=== PATIENT | female | born 2000 | race Caucasian/White ===

== ENCOUNTER 2018-07-30 12:14 | Emergency (ER) | payer SELFPAY ==
[2018-07-30 12:16] VITALS: BP 129/85; PULSE 94; RESP 18; TEMP 36.6; O2SAT 98; BMI 31.5
--- NOTE | 2018-07-30 13:21 | EKG12_ITS ---
Test Reason : PALPITATIONS Blood Pressure : / mmHG Vent. Rate : 087 BPM Atrial Rate : 087 BPM P-R Int : 156 ms QRS Dur : 086 ms QT Int : 372 ms P-R-T Axes : 057 071 051 degrees QTc Int : 447 ms Normal sinus rhythm Normal ECG Confirmed by MORGAN LEACH, ISAAC ([id number]), senior editor ALAYNA FRIEDMAN ([id number] on 08/03/2018 8:51:15 AM Referred By: Confirmed By:ISAAC MORA MD
--- NOTE | 2018-07-30 13:22 | RAD_ITS ---
STUDY: X-RAY CHEST REASON FOR EXAM: Female, 18 years old. Heart palpitations. TECHNIQUE: Frontal and lateral views of the chest. COMPARISON: None. FINDINGS: The lungs are clear and expanded. There is no demonstrated pleural abnormality. Normal size heart. Normal mediastinum and doni. Normal visualized pulmonary arteries. Normal visualized aortic arch and descending thoracic aorta. Normal visualized thoracic spine. Normal visualized ribs, clavicles, and shoulders. There is no demonstrated abnormality of the visualized soft tissue structures of the upper abdomen. RAD/Chest PA and Lateral IMPRESSION: No evidence of acute cardiopulmonary process. Electronically Signed: Lan Rios DO at 14:56 EDT , Service support ,
--- NOTE | 2018-07-30 13:27 | NURSING ---
NO OLD EKGS
[2018-07-30 13:34] LABS: Absolute Lymphocyte Count 2.03 X10^3/ul (0.83-4.51); Basophil# 0.03 X10^3/uL; Basophil% 0.4 % (0-1); Eosinophil# 0.08 X10^3/uL; Hematocrit 40.4 % (37-47); Hemoglobin 13.5 g/dl (12.0-15.0); Lymphocyte # 2.03 X10^3/ul (4.0); Lymphocyte % 26.3 % (19-41); Mean Corp Hgb Conc 33.4 g/gl (32-36); Mean Corpuscular Hgb 31.1 pg (27.0-32.0); Mean Corpuscular Volume 93.1 fL (81-99); Mean Platelet Vol. 10.3 fl (6.2-12.0); Monocyte# 0.61 X10^3/uL; Monocyte% 7.9 % (0-10); Neutrophil # 4.95 X10^3/uL (2.7-7.7); Neutrophil % 64.3 % (47-70); POSITIVE COUNT NO; POSITIVE DIFFERENTIAL NO; POSITIVE MORPHOLOGY NO; Platelet Count 331 K/mm3 (150-450); RBC Distribution Width CV 12.6 % (11.6-14.6); Red Blood Count 4.34 M/mm3 (4.2-5.4); White Blood Count 7.7 K/mm3 (4.4-11.0)
[2018-07-30 13:39] LABS: D-Dimer Quantitative (DVT/PE) < 0.27 FEU/ug/m (0.27-0.49)
[2018-07-30 13:50] LABS: AST(SGOT) 11 U/L (15-37); Alanine Aminotransfer ALT/SGPT 17 U/L (13-56); Albumin, Serum 3.8 g/dL (3.2-5.0); Alkaline Phosphatase 70 U/L (45-117); Anion Gap 10 (5-15); BUN 13 mg/dL (7-18); BUN/Creat Ratio 17.1 RATIO (10-20); Bilirubin, Direct 0.07 mg/dL (0.00-0.30); Calcium,Total 8.5 mg/dL (8.5-10.1); Chloride 104 mmol/L (98-107); Creatinine, Serum 0.76 mg/dL (0.55-1.02); EST Glomerular Filtration Rate 102 mL/min (>60); Est Glom Filt Rate - Afr Amer 124 mL/min (>60); Estimated Creatinine Clearance 93.39 ml/min; Glucose 91 mg/dL (74-106); Lipase 96 U/L (73-393); Potassium 3.9 mmol/L (3.5-5.1); Protein, Total 7.8 g/dL (6.4-8.2); Sodium Level 138 mmol/L (136-145)
[2018-07-30 14:59] VITALS: BP 118/80; PULSE 85; RESP 14; O2SAT 98
--- NOTE | 2018-07-30 15:09 | ED.VISSUMM ---
- ER Visit Summary Date of Service: 07/30/18 Chief Complaint: Multiple complaints History of Present Illness: The patient is a 18 F who presents with multiple complaints. Over the last 2 weeks she has had intermittent episodes of palpitations and a sensation of her heart racing. She does note a prior history of stress attacks. She also complains of a sore throat. She also complains of right lower chest and right upper abdominal pain and right shoulder pain. She also complains of back pain and neck pain. She has a cough. She has had some diarrhea. She complains of intermittent headaches. At times she feels dizzy or flushed. No history of recent surgery hospitalization or travel. No history of DVT or pulmonary embolism. No known coagulopathies. No medical history. Physical Examination: Afebrile vitals are normal Moist mucous membranes Heart regular rate and rhythm Lungs are clear Abdomen soft nontender to palpation and nondistended Alert Symmetric palpable radial pulses and dorsalis pedis pulses Extremities are nontender without edema Test Results: EKG shows sinus rhythm at a rate of 87. Chest x-ray shows no acute process. CBC CMP lipase all normal. Troponin is negative. D-dimer is negative. Emergency Department Course and Treatment: Patient's workup is unremarkable. I advised that she follow-up with her primary care physician. She understands return for new or worsening symptoms. Patient discharged home in good condition. Treatment Plan: [] Disposition: Discharge Impression: Palpitations Chest pain Abdominal pain This note was generated with [employer] dictation software. It may contain incorrect words, spelling, and punctuation that were not noted in review of the chart prior to signing ED Disposition - Plan for ED Patient: Chief Complaint: Palpitations Referrals: Care Physician,No Primary [Primary Care Provider] -
--- NOTE | 2018-07-30 15:15 | ED.DEP ---
ED Disposition - Plan for ED Patient: Chief Complaint: Palpitations Instructions: ED Palpitations Referrals: Care Physician,No Primary [Primary Care Provider] - Shar Millard MD [STAFF PHYSICIAN] -
[2018-07-30 15:20] VITALS: BP 105/70; PULSE 80; RESP 14; O2SAT 98
== END 2018-07-30 15:24 | disposition home or self-care (01) ==
PROVIDERS: Emergency Provider Emergency Medicine
DX: R00.2 Palpitations (principal); R07.9 Chest pain, unspecified; R10.11 Right upper quadrant pain; M25.511 Pain in right shoulder; M54.2 Cervicalgia; R51 Headache; J02.9 Acute pharyngitis, unspecified; R05 Cough; R06.00 Dyspnea, unspecified; R42 Dizziness and giddiness; R19.7 Diarrhea, unspecified
CPT/HCPCS: 71046; 80048; 80076; 83690; 84484; 85025; 85379; 93005; 99284; A4216

== ENCOUNTER 2019-01-16 20:28 | Emergency (ER) | payer SELFPAY ==
[2019-01-16 20:29] VITALS: BP 128/62; PULSE 113; RESP 18; TEMP 37.6; O2SAT 98; BMI 33.7
[2019-01-16 21:07] LABS: Absolute Lymphocyte Count 0.62 X10^3/ul (0.83-4.51); Absolute Neutrophil Count 9.8 X10^3/uL (2.0-7.7); Basophil# 0.01 X10^3/uL; Basophil% 0.1 % (0-1); Eosinophil# 0.01 X10^3/uL; Eosinophils% 0.1 % (0-5); Hematocrit 42.5 % (37-47); Hemoglobin 13.9 g/dl (12.0-15.0); Lymphocyte # 0.62 X10^3/ul (4.0); Lymphocyte % 5.6 % (19-41); Mean Corp Hgb Conc 32.7 g/gl (32-36); Mean Corpuscular Hgb 30.6 pg (27.0-32.0); Mean Corpuscular Volume 93.6 fL (81-99); Mean Platelet Vol. 10.4 fl (6.2-12.0); Monocyte# 0.61 X10^3/uL; Monocyte% 5.5 % (0-10); Neutrophil # 9.75 X10^3/uL (2.7-7.7); Neutrophil % 88.5 % (47-70); Platelet Count 359 K/mm3 (150-450); RBC Distribution Width SD 44.6 fl (35.1-43.9); Red Blood Count 4.54 M/mm3 (4.2-5.4)
[2019-01-16 21:08] LABS: POSITIVE COUNT NO; POSITIVE DIFFERENTIAL NO; POSITIVE MORPHOLOGY NO
[2019-01-16 21:14] LABS: Anion Gap 9 (5-15); BUN 11 mg/dL (7-18); BUN/Creat Ratio 15.6 RATIO (10-20); Calcium,Total 8.1 mg/dL (8.5-10.1); Chloride 105 mmol/L (98-107); EST Glomerular Filtration Rate 112 mL/min (>60); Est Glom Filt Rate - Afr Amer 135 mL/min (>60); Estimated Creatinine Clearance 101.39 ml/min; Glucose 105 mg/dL (74-106); Potassium 3.7 mmol/L (3.5-5.1); Sodium Level 137 mmol/L (136-145)
[2019-01-16 21:32] LABS: Red Blood Cells-Urine 0 SEEN /hpf (0-5)
[2019-01-16 21:34] LABS: Color, Urine Yellow (Yellow); Glucose, Dipstick Normal (Normal); Ketone-Dipstick Negative (Negative); Leukocyte Esterase-Dipstick 100 /ul (Negative); Nitrite-Dipstick Negative (Negative); Occult Blood-Urine 150 /ul (Negative); Protein-Dipstick 15 mg/dl (Negative); Urine Bilirubin Dipstick Negative (Negative); Urine Clarity Clear (Clear); Urine Urobilinogen Normal (Normal)
[2019-01-16 21:34] LABS: Pregnancy, Serum, hCG Quali. NEGATIVE Negative (0-9 Nonpreg)
--- NOTE | 2019-01-16 21:41 | ED.DCSUM_ITS ---
- ER Visit Summary Date of Service: 01/16/19 Chief Complaint: Abdominal pain History of Present Illness: The patient is a 18 F presenting with abdominal pain. Patient states this started today. She woke up with diffuse abdominal pain. She complains of nausea, vomiting, diarrhea. She denies blood in her stool or emesis. She does have sick contacts. She denies fever. Denies urinary complaints. She is unsure if she could be . Denies other complaints. Physical Examination: Vitals are stable. Patient is afebrile. Alert no acute distress. HEENT exam is unremarkable. Neck is supple. Lungs are clear and equal bilaterally. Heart is regular and tachycardic Abdomen is soft epigastric tenderness with no rebound or guarding Extremities are unremarkable. Skin is warm and dry. No focal neurologic deficit. Remainder of exam is unremarkable. Emergency Department Course and Treatment: CBC, chemistries unremarkable. Liver lipase are normal. Urinalysis shows 0-5 white blood cells, 0 red cells. HCG negative. Patient was given IV fluids, Zofran. CT abdomen pelvis was obtained and shows a small amount of free fluid in the cul-de-sac. No abnormal adnexal masses. No acute appendicitis or diverticulitis. On reevaluation patient is resting comfortably. She is feeling improved. She is able to tolerate p.o. in the emergency department. She is given prescription for Zofran. Advised to follow-up with her primary care physician. Advised return to the ED for worsening complaints. Disposition: Discharge home Impression: Abdominal pain; vomiting diarrhea This note was generated with [employer] dictation software. It may contain incorrect words, spelling, and punctuation that were not noted in review of the chart prior to signing ED Disposition - Plan for ED Patient: Instructions: ED Vomiting Diarrhea Nonspecific Ad Prescriptions: Ondansetron [Zofran Odt] 4 mg PO Q8H PRN PRN #10 tablet PRN Reason: Nausea Referrals: Sharad Edwards MD [NON-STAFF] -
[2019-01-16 21:50] LABS: Squamous Epithelial Cells - UA 0-5 SEEN /hpf (5-10)
[2019-01-16 21:51] LABS: Bacteria RARE /hpf (None Seen); Mucous, Urine RARE /hpf (<or=2+); White Blood Cells 0-5 SEEN /hpf (0-5)
[2019-01-16] MEDS: Ondansetron 4 MG/2 ML Vial IV (21:56)
[2019-01-16] MEDS: 0.9% Normal Saline 1,000 ML 999 ML IV (21:56)
[2019-01-16 21:58] LABS: AST(SGOT) 15 U/L (15-37); Alanine Aminotransfer ALT/SGPT 18 U/L (13-56); Albumin, Serum 3.7 g/dL (3.2-5.0); Alkaline Phosphatase 60 U/L (45-117); Bilirubin, Direct 0.16 mg/dL (0.00-0.30); Globulin 4.2 g/dL (2.2-4.2); Lipase 64 U/L (73-393); Protein, Total 7.9 g/dL (6.4-8.2)
[2019-01-16 23:13] VITALS: BP 112/68; PULSE 104; RESP 16; TEMP 37.1; O2SAT 97
[2019-01-17 01:30] VITALS: BP 116/68; PULSE 78; RESP 16; O2SAT 98
--- NOTE | 2019-01-17 02:17 | ED.DEP ---
ED Disposition - Plan for ED Patient: Instructions: ED Vomiting Diarrhea Nonspecific Ad Prescriptions: Ondansetron [Zofran Odt] 4 mg PO Q8H PRN PRN #10 tablet PRN Reason: Nausea Referrals: Sharad Edwards MD [NON-STAFF] -
[2019-01-17 02:29] VITALS: BP 126/82; PULSE 84; RESP 16; O2SAT 100
--- NOTE | 2019-01-17 21:32 | CT_ITS ---
STUDY: CT ABDOMEN AND PELVIS WITH CONTRAST REASON FOR EXAM: Female, 18 years old. Midabdominal pain RADIATION DOSAGE (If Supplied By Facility): CTDIvol = ( 14.56 ) mGy, DLP = ( 971.97 ) mGycm TECHNIQUE: Transaxial images were obtained from the dome of the diaphragm to the symphysis pubis without oral contrast. Isovue 370 100ML IV/Oral was administered. Sagittal and coronal images were reconstructed. Individualized dose optimization techniques were used for this CT. COMPARISON: None. FINDINGS: The lung bases are clear. The liver is normal. No dilated intrahepatic biliary radicles. The gallbladder is normal with no calcifications within it. There is no pericholecystic fluid collection or streakiness The spleen is normal. The pancreas is normal. Both adrenals are normal. The kidneys are normal with no masses, calculi or hydronephrosis The stomach is normal. There is no bowel distention, acute appendicitis or diverticulitis. No constricting lesions are seen in large bowel. The abdominal wall is intact with no hernias. There is no ascites or any free intraperitoneal air. No indication of epiploic appendagitis The vascular structures in the retroperitoneum are normal. There is no retrocrural, retroperitoneal or mesenteric adenopathy. The bones and joints are normal. The urinary bladder is normal.--The uterus is normal. A small amount of free fluid is in the cul-de-sac2. There is no inguinal or pelvic adenopathy. There is no inguinal hernia. . CT/Abdomen/Pelvis WITH Contrast IMPRESSION: A small amount of free fluid in the cul-de-sac. No abnormal adnexal masses. No acute appendicitis or diverticulitis. Electronically Signed: Ap Sims MD at 1:49 EDT Tel , Service support ,
== END 2019-01-17 02:35 | disposition home or self-care (01) ==
LOC: ED 21:29
PROVIDERS: Emergency Provider Emergency Medicine
DX: R10.9 Unspecified abdominal pain (principal); R11.2 Nausea with vomiting, unspecified; R19.7 Diarrhea, unspecified; K21.9 Gastro-esophageal reflux disease without esophagitis
CPT/HCPCS: 74177; 80048; 80076; 81001; 83690; 84703; 85025; 96361; 96374; 99283; Q9967; A4216; J2405

== ENCOUNTER 2019-12-18 16:24 | Emergency (ER) | payer OTHER, SELFPAY ==
[2019-12-18 16:25] VITALS: BP 138/87; PULSE 86; RESP 18; TEMP 36.6; O2SAT 99; BMI 38.7
--- NOTE | 2019-12-18 16:43 | ED.DCSUM_ITS ---
- ER Visit Summary Date of Service: 12/18/19 Chief Complaint: Bilateral hand pain and numbness History of Present Illness: The patient is a 19 F with bilateral hand pain and numbness going on for several weeks. Certain positions make her symptoms worse. Nothing seems to make them better. She works in a restaurant. No trauma. Physical Examination: Inspection normal. Range of motion intact. Good strength. Good sensation on my exam. She does have paresthesias with Phalen and Tinel's testing. Skin appears normal. Test Results: None indicated Emergency Department Course and Treatment: Patient likely has carpal tunnel syndrome bilaterally. Rest, ice, elevate. Anti-inflammatories. Wrist splints. Follow-up with orthopedics. Treatment Plan: As above Disposition: Discharge Impression: Bilateral carpal tunnel syndrome This note was generated with [employer] dictation software. It may contain incorrect words, spelling, and punctuation that were not noted in review of the chart prior to signing ED Disposition - Plan for ED Patient: Referrals: Care Physician,No Primary [Primary Care Provider] -
--- NOTE | 2019-12-18 16:45 | ED.DEP ---
ED Disposition - Plan for ED Patient: Instructions: Carpal Tunnel Prescriptions: Ibuprofen [Motrin] 800 mg PO TID PRN PRN #20 tab PRN Reason: Pain Or Fever Prescription Printed Referrals: Lila Alcantara DO [STAFF PHYSICIAN] -
[2019-12-18 16:59] VITALS: BP 121/63; PULSE 83; RESP 16; O2SAT 99
[2019-12-18 17:02] VITALS: BP 122/78; PULSE 80; RESP 16; O2SAT 99
== END 2019-12-18 17:18 | disposition home or self-care (01) ==
LOC: ED 16:50
PROVIDERS: Emergency Provider Emergency Medicine
DX: G56.03 Carpal tunnel syndrome, bilateral upper limbs (principal)
CPT/HCPCS: 99282

== ENCOUNTER → 2019-12-28 11:03 | Outpatient (CLI) | payer OTHER, SELFPAY ==
[2019-12-28 10:55] VITALS: BMI 38.7
--- NOTE | 2019-12-28 11:05 | RAD_ITS ---
STUDY: X-RAY - LEFT WRIST REASON FOR EXAM: Bilateral wrist pain. TECHNIQUE: 3 view(s) of the wrist were obtained. COMPARISON: None. FINDINGS: Normal visualized distal radius and ulna. Normal radiocarpal articulation. Normal distal radioulnar articulation. Normal carpal bones. Normal carpal articulations. Normal carpometacarpal articulation of the thumb. Normal second through fifth carpometacarpal articulations. Normal visualized metacarpal bones. The soft tissue structures are unremarkable. RAD/Wrist min 3 Views IMPRESSION: Normal x-ray examination of the left wrist. Electronically Signed: José Luis Lares MD at 13:41 EST Tel , Service support ,
--- NOTE | 2019-12-28 11:05 | RAD_ITS ---
STUDY: X-RAY - RIGHT WRIST REASON FOR EXAM: Bilateral wrist pain. TECHNIQUE: 3 view(s) of the wrist were obtained. COMPARISON: None. FINDINGS: Normal visualized distal radius and ulna. Normal radiocarpal articulation. Normal distal radioulnar articulation. Normal carpal bones. Normal carpal articulations. Normal carpometacarpal articulation of the thumb. Normal second through fifth carpometacarpal articulations. Normal visualized metacarpal bones. The soft tissue structures are unremarkable. RAD/Wrist min 3 Views IMPRESSION: Normal x-ray examination of the right wrist. Electronically Signed: José Luis Lares MD at 12:57 EST Tel , Service support ,
[2019-12-28 11:34] LABS: Lyme Ab Screen Interpretation REF LAB
[2019-12-28 14:39] LABS: Erythrocyte Sedimentation Rate 18 mm/hr (0-20); Rheumatoid Factor < 10.0 IU/mL (<15)
[2019-12-28 14:40] LABS: Absolute Lymphocyte Count 3.12 X10^3/uL (0.83-4.51); Absolute Neutrophil Count 5.6 X10^3/uL (2.0-7.7); Basophil# 0.05 X10^3/uL; Basophil% 0.5 % (0-1); Eosinophil# 0.14 X10^3/uL; Eosinophils% 1.4 % (0-5); Hematocrit 39.3 % (37-47); Hemoglobin 12.9 g/dL (12.0-15.0); Lymphocyte # 3.12 X10^3/ul (4.0); Lymphocyte % 31.8 % (19-41); Mean Corp Hgb Conc 32.8 g/dL (32-36); Mean Corpuscular Hgb 30.2 pg (27.0-32.0); Mean Platelet Vol. 10.7 fl (6.2-12.0); Monocyte# 0.87 X10^3/uL; Monocyte% 8.9 % (0-10); NRBC Flagged by Analyzer 0 % (0-5); Neutrophil % 57.1 % (47-70); Platelet Count 328 K/mm3 (150-450); RBC Distribution Width CV 12.5 % (11.6-14.6); RBC Distribution Width SD 42.2 fl (35.1-43.9); Red Blood Count 4.27 M/mm3 (4.2-5.4); White Blood Count 9.8 K/mm3 (4.4-11.0)
[2019-12-29 15:20] LABS: ANTINUCLEAR ANTIBODIES DIRECT Negative (Negative)
[2020-01-02 16:57] LABS: CCP IgG Antibodies 120 units (0-19); HLA B27 Negative (.); Lyme Scn Total Ab w/Rflx <0.91 ISR (0.00-0.90)
== END ==
PROVIDERS: Referring Provider Orthopaedic Surgery; Visit Provider Orthopaedic Surgery
DX: M25.50 Pain in unspecified joint (principal); M25.531 Pain in right wrist; M25.532 Pain in left wrist
CPT/HCPCS: 36415; 73110; 81374; 85025; 85652; 86038; 86140; 86200; 86431; 86618

== ENCOUNTER → 2020-06-11 08:48 | Outpatient (CLI) | payer OTHER, SELFPAY ==
[2020-02-06 13:15] VITALS: BMI 38.7
[2020-06-11 10:10] LABS: Absolute Lymphocyte Count 3.85 X10^3/uL (0.83-4.51); Absolute Neutrophil Count 5.9 X10^3/uL (2.0-7.7); Basophil# 0.05 X10^3/uL; Basophil% 0.4 % (0-1); Eosinophil# 0.19 X10^3/uL; Eosinophils% 1.7 % (0-5); Hematocrit 38.7 % (37-47); Hemoglobin 12.7 g/dL (12.0-15.0); Lymphocyte # 3.85 X10^3/ul (4.0); Lymphocyte % 34.5 % (19-41); Mean Corp Hgb Conc 32.8 g/dL (32-36); Mean Corpuscular Hgb 30.9 pg (27.0-32.0); Mean Corpuscular Volume 94.2 fL (81-99); Mean Platelet Vol. 10.7 fl (6.2-12.0); Monocyte# 1.15 X10^3/uL; Monocyte% 10.3 % (0-10); NRBC Flagged by Analyzer 0 % (0-5); Neutrophil % 52.8 % (47-70); Platelet Count 398 K/mm3 (150-450); RBC Distribution Width CV 13.3 % (11.6-14.6); RBC Distribution Width SD 45.3 fl (35.1-43.9); Red Blood Count 4.11 M/mm3 (4.2-5.4); White Blood Count 11.2 K/mm3 (4.4-11.0)
[2020-06-11 10:11] LABS: ALB/GLOB Ratio 0.9 RATIO (0.9-2.4); AST(SGOT) 14 U/L (15-37); Alanine Aminotransfer ALT/SGPT 25 U/L (13-56); Albumin, Serum 3.5 g/dL (3.2-5.0); Alkaline Phosphatase 71 U/L (45-117); Anion Gap 6 (5-15); BUN 11 mg/dL (7-18); BUN/Creat Ratio 17.1 RATIO (10-20); Calcium,Total 8.6 mg/dL (8.5-10.1); Chloride 103 mmol/L (98-107); Creatinine, Serum 0.64 mg/dL (0.55-1.02); EST Glomerular Filtration Rate 123 mL/min (>60); Erythrocyte Sedimentation Rate 20 mm/hr (0-20); Est Glom Filt Rate - Afr Amer 148 mL/min (>60); Globulin 3.9 g/dL (2.2-4.2); Glucose 91 mg/dL (74-106); Potassium 3.7 mmol/L (3.5-5.1); Protein, Total 7.4 g/dL (6.4-8.2); Sodium Level 135 mmol/L (136-145)
== END ==
DX: M05.79 Rheumatoid arthritis with rheumatoid factor of multiple sites without organ or systems involvement (principal)
CPT/HCPCS: 36415; 80053; 85025; 85652; 86140

== ENCOUNTER → 2020-08-27 14:25 | Outpatient (CLI) | payer OTHER, SELFPAY ==
[2020-02-06 13:15] VITALS: BMI 38.7
[2020-08-27 17:56] LABS: Absolute Lymphocyte Count 2.89 X10^3/uL (0.83-4.51); Absolute Neutrophil Count 6.3 X10^3/uL (2.0-7.7); Basophil# 0.04 X10^3/uL; Basophil% 0.4 % (0-1); Erythrocyte Sedimentation Rate 25 mm/hr (0-20); Hematocrit 40.3 % (37-47); Hemoglobin 13.2 g/dL (12.0-15.0); Lymphocyte # 2.89 X10^3/ul (4.0); Lymphocyte % 28.3 % (19-41); Mean Corp Hgb Conc 32.8 g/dL (32-36); Mean Corpuscular Hgb 31.2 pg (27.0-32.0); Mean Corpuscular Volume 95.3 fL (81-99); Mean Platelet Vol. 10.7 fl (6.2-12.0); Monocyte# 0.78 X10^3/uL; Monocyte% 7.6 % (0-10); NRBC Flagged by Analyzer 0 % (0-5); Neutrophil # 6.25 X10^3/uL (2.7-7.7); Neutrophil % 61.3 % (47-70); Platelet Count 382 K/mm3 (150-450); RBC Distribution Width CV 12.6 % (11.6-14.6); RBC Distribution Width SD 43.3 fl (35.1-43.9); Red Blood Count 4.23 M/mm3 (4.2-5.4); White Blood Count 10.2 K/mm3 (4.4-11.0)
[2020-08-27 18:10] LABS: ALB/GLOB Ratio 0.8 RATIO (0.9-2.4); AST(SGOT) 13 U/L (15-37); Alanine Aminotransfer ALT/SGPT 25 U/L (13-56); Albumin, Serum 3.4 g/dL (3.2-5.0); Alkaline Phosphatase 74 U/L (45-117); Anion Gap 7 (5-15); BUN 11 mg/dL (7-18); BUN/Creat Ratio 15.2 RATIO (10-20); Calcium,Total 8.5 mg/dL (8.5-10.1); Chloride 105 mmol/L (98-107); Creatinine, Serum 0.73 mg/dL (0.55-1.02); EST Glomerular Filtration Rate 106 mL/min (>60); Est Glom Filt Rate - Afr Amer 128 mL/min (>60); Glucose 101 mg/dL (74-106); Potassium 3.3 mmol/L (3.5-5.1); Protein, Total 7.4 g/dL (6.4-8.2); Sodium Level 138 mmol/L (136-145)
[2020-08-28 08:54] LABS: Hepatitis B Surface Antigen Non-Reactive (Nonreactive); Hepatitis C Antibody Non-Reactive (Nonreactive)
[2020-08-30 03:06] LABS: QNTFERON TB Mitogen Value > 10.00 IU/mL (.); QNTFERON TB Nil Value 0.02 IU/mL (.); QNTFERON TB1+ Ag Value 0.01 IU/mL (.); QNTFERON TB2+ Ag Value 0.02 IU/mL (.)
[2020-08-30 09:48] LABS: Hepatitis B Core AB IgM Negative (Negative); QNTIFERON TB Positive Criteria Negative (Negative)
== END ==
DX: M05.79 Rheumatoid arthritis with rheumatoid factor of multiple sites without organ or systems involvement (principal)
CPT/HCPCS: 36415; 80053; 85025; 85652; 86140; 86480; 86705; 86803; 87340

== ENCOUNTER → 2021-08-14 13:57 | Outpatient (CLI) | payer OTHER, SELFPAY ==
[2021-08-14 15:06] LABS: Erythrocyte Sedimentation Rate 25 mm/hr (0-30)
[2021-08-14 15:08] LABS: Hematocrit 40.8 % (37-47); Hemoglobin 13.4 g/dL (12.0-15.0); Mean Corp Hgb Conc 32.8 g/dL (32-36); Mean Corpuscular Hgb 31.2 pg (27.0-32.0); Mean Corpuscular Volume 94.9 fL (81-99); Mean Platelet Vol. 10.2 fl (6.2-12.0); Platelet Count 384 K/mm3 (150-450); RBC Distribution Width CV 13.1 % (11.6-14.6); RBC Distribution Width SD 45.5 fl (35.1-43.9); White Blood Count 8.5 K/mm3 (4.4-11.0)
[2021-08-14 15:22] LABS: ALB/GLOB Ratio 0.7 RATIO (0.9-2.4); AST(SGOT) 16 U/L (15-37); Alanine Aminotransfer ALT/SGPT 16 U/L (13-56); Albumin, Serum 3.1 g/dL (3.2-5.0); Alkaline Phosphatase 54 U/L (45-117); Anion Gap 7 (5-15); BUN 8 mg/dL (7-18); BUN/Creat Ratio 11.9 RATIO (10-20); Calcium,Total 8.6 mg/dL (8.5-10.1); Chloride 106 mmol/L (98-107); Creatinine, Serum 0.67 mg/dL (0.55-1.02); EST Glomerular Filtration Rate 115 mL/min (>60); Est Glom Filt Rate - Afr Amer 139 mL/min (>60); Globulin 4.4 g/dL (2.2-4.2); Glucose 82 mg/dL (74-106); Potassium 3.6 mmol/L (3.5-5.1); Protein, Total 7.5 g/dL (6.4-8.2); Sodium Level 138 mmol/L (136-145)
== END ==
DX: M05.79 Rheumatoid arthritis with rheumatoid factor of multiple sites without organ or systems involvement (principal)
CPT/HCPCS: 36415; 80053; 85027; 85652; 86140

== ENCOUNTER 2022-12-11 07:29 | Emergency (ER) | payer OTHER, SELFPAY ==
[2022-12-11 07:31] VITALS: BP 143/87; PULSE 124; RESP 17; TEMP 36.4; O2SAT 98; BMI 43.4
--- NOTE | 2022-12-11 07:52 | EDS_ITS ---
HPI History of Present Illness Chief Complaint: Abd Pain Informant: patient Narrative Narrative: Increasing lower pelvic pain since 3 AM. Reports started with intercourse. Denies trauma from intercourse. Started her menstrual period 2 days ago states is very light. That is her typical. History ovarian cyst. She states she has been off control has not had a flare in a while. She took ibuprofen earlier in the evening due to her menstrual cramps. States had pain when she tried to urinate. Unclear of dysuria or pain in her pelvis. Denies any abdominal surgeries. History of rheumatoid arthritis on Enbrel has not used in last 2 weeks. History of GERD on omeprazole. Denies any allergies. Prior similar symptoms: Yes PFSH PFSH Medical History (Updated 12/11/22 @ 11:[address] Efra Stewart DO) Rheumatoid arthritis Home Medications ibuprofen 600 mg tablet 600 mg PO Q6H PRN PRN pain #30 TABLETS 12/11/22 [Rx Last Taken Unknown] Allergy/AdvReac Type Severity Reaction Status Date / Time No Known Allergies Allergy Verified 12/11/22 07:30 Family History Grandmother Diabetes Lupus Grandfather Cancer Social History Smoking Status: Never smoker ROS ROS ED Constitutional Constitutional ED: Denies chills, fever(s) or sweats Eyes Eyes: Denies change in vision ENT ENT ED: Denies dysphagia or sore throat Cardiovascular Cardiovascular: Denies chest pain, leg edema, palpitations or racing heartbeat Respiratory/Chest Respiratory/Chest: Denies cough, dyspnea or dyspnea on exertion Gastrointestinal Gastrointestinal: Denies abdominal pain, diarrhea, nausea or vomiting Genitourinary Genitourinary ED: Reports other Details: Pelvic pain, menorrhagia ; Denies dysuria, hematuria or urinary frequency Musculoskeletal Musculoskeletal: Denies back pain, extremity pain or neck pain Integumentary Denies rash or wounds Neurologic Neurologic: Denies headache(s), paresthesias or weakness EXAM Physical Exam Const Vital Signs: 12/11/22 07:31 12/11/22 10:36 12/11/22 11:13 Temperature 97.6 F L Temperature Source Temporal Pulse Rate 124 H 71 Respiratory Rate 17 16 16 Blood Pressure 143/87 H 134/88 H Blood Pressure Mean 105 Pulse Ox 98 98 Oxygen Delivery Method Room Air Positive well nourished and well developed General Appearance ED: well developed and NAD HEENT Reports moist mucous membranes normocephalic and atraumatic Eyes PERRL, EOMs intact bilaterally and conjunctivae normal General Eye ED: Yes normal appearance of both eyes Neck no lymphadenopathy and supple General: Negative for tenderness Chest Wall Chest: Negative for tenderness Resp normal respiratory effort and normal air movement Effort and Inspection: symmetric chest movement; Negative for respiratory d istress Cardio regular rhythm and no murmurs Rate: tachycardic Peripheral Pulses: pulses 2+ throughout GI normal to inspection, nondistended, normoactive bowel sounds GI Narrative: Tender suprapubic, no guarding or rebound. Palpation: Negative for guarding or rebound tenderness present Back/Spine no CVA tenderness and no thoracic nor lumbar tenderness Extremity normal to inspection General Extremety ED: Negative for edema or tenderness General Extremity: Negative for edema Neuro oriented x3 and no sensory deficits noted Sensorium / Orientation: awake and alert Skin no rashes or lesions noted and no wounds MDM MDM MDM Narrative Medical decision making narrative: Patient presents increasing pelvic pain after intercourse. She denies any trauma with intercourse. Differentials menorrhagia, ovarian cyst ovarian torsion, ectopic . Urine will be obtained and she will be treated for her pain symptoms. We will plan on ultrasound pelvis for further rule out. Ultrasound notes moderate free fluid, follicles bilateral ovaries there is a right ovarian cyst up to 1.9 cm. No torsion. hCG is negative. Urine had blood however she is on her menstrual period at 25 leukocytes. She reports pelvic pain with urine however no dysuria. Urine culture sent for further evaluation, I will not treat unless culture is positive. She will be continued on NSAIDs. She is given follow-up with gynecology as an outpatient. Return precautions. All questions were answered. Lab Data Attestation: I reviewed the patient's lab results. Labs: Laboratory Results - last 24 hr 12/11/22 08:10 Urine Color Yellow Urine Clarity Clear Urine pH 6.0 Ur Specific Bow 1.020 Urine Protein 15 H Urine Glucose (UA) Normal Urine Ketones Negative Urine Occult Blood 250 H Urine Nitrite Negative Urine Bilirubin Negative Urine Urobilinogen Normal Ur Leukocyte Esterase 25 H Urine RBC 0-5 SEEN Urine WBC 0-5 SEEN Ur Squamous Epith Cells 0 SEEN Urine Bacteria 0 SEEN Urine Mucus 0 SEEN Urine Test Negative Radiography Diagnostic Testing: Clinical Impression(s) from Imaging Studies Transvaginal US 12/11/22 08:36 IMPRESSION: Dominant follicle seen in the right ovary. Small follicles are seen in the left ovary. Moderate degree of free fluid is seen in the pelvis. Electronically Signed: Iggy Zheng MD at 10:24 EST , Discharge Plan Triage Chief Complaint: Abd Pain ED Provider: Efra Stewart Dx/Rx/DC Orders Clinical Impression: Ovarian cyst, Pelvic pain Instructions: ED Ovarian Cyst Prescriptions: New ibuprofen 600 mg tablet 600 mg PO Q6H PRN PRN (Reason: pain) Qty: 30 0RF Primary Care Provider: Haley Gilbert NP Referrals: Sharon Jamil MD [Med Staff - Active Staff] - 1-2 Weeks Haley Gilbert NP, LOSS PREVENTION OFFICER-C [Primary Care Provider] - Activity Restrictions/Additional Instructions: Multiple follicles of both ovaries, right ovarian cysts up to 1.9 cm. No torsion. Moderate free fluid. Take ibuprofen as prescribed. Follow-up with gynecology as an outpatient for reevaluation. Disposition Disposition: Home, Self Care Discharge Date/Time: 12/11/22 11:14
[2022-12-11] MEDS: Ketorolac 30 MG/ML Syringe IM (08:15)
[2022-12-11 08:21] LABS: Bacteria 0 SEEN /hpf (None Seen); Mucous, Urine 0 SEEN /hpf (<or=2+); Squamous Epithelial Cells - UA 0 SEEN /hpf (5-10)
[2022-12-11 08:24] LABS: Color, Urine Yellow (Yellow); Glucose, Dipstick Normal (Normal); Ketone-Dipstick Negative (Negative); Leukocyte Esterase-Dipstick 25 /ul (Negative); Nitrite-Dipstick Negative (Negative); Occult Blood-Urine 250 /ul (Negative); Protein-Dipstick 15 mg/dl (Negative); Urine Bilirubin Dipstick Negative (Negative); Urine Clarity Clear (Clear); Urine Urobilinogen Normal (Normal)
[2022-12-11 08:31] LABS: Internal QC Validated? YES +Cl - CLEAR BKGD; Pregnancy, Urine Negative Negative; Red Blood Cells-Urine 0-5 SEEN /hpf (0-5); White Blood Cells 0-5 SEEN /hpf (0-5)
--- NOTE | 2022-12-11 08:36 | US_ITS ---
STUDY: ULTRASOUND OF THE FEMALE PELVIS - COMPLETE REASON FOR EXAM: Female, 22 years old. Pelvic pain lower- worse on right LMP: 12/07/2022. TECHNIQUE: Transvaginal TECHNICAL QUALITY: Adequate. COMPARISON: None. FINDINGS: The uterus is anteverted and is in a midline position. The uterus measures 6.7 cm x 3.2 cm x 3.1 cm. Normal uterine cervix. The endometrium measures 4 mm in thickness, and is hyperechoic. There is no demonstrated endometrial mass. There is no demonstrated myometrial mass. I.U.D. - The patient does not have an I.U.D. The right ovary is visualized. The right ovary measures 4.7 cm x 4.2 cm x 2.5 cm. A dominant follicle is seen in the right ovary measuring 1.9 cm x 1.5 cm x 0.9 cm. There is no visualized right adnexal mass or complex lesion. There is normal arterial and normal venous vascularity. The left ovary is visualized. The left ovary measures 3.7 cm x 3.3 cm x 2.2 cm. Follicles are seen within the left ovary. There is no visualized left adnexal mass or complex lesion. There is normal arterial and normal venous vascularity. There is a moderate amount of fluid in the cul-de-sac. US/Transvaginal Non- IMPRESSION: Dominant follicle seen in the right ovary. Small follicles are seen in the left ovary. Moderate degree of free fluid is seen in the pelvis. Electronically Signed: Iggy Zheng MD at 10:24 EST ,
[2022-12-11 10:36] VITALS: RESP 16
[2022-12-11 11:13] VITALS: BP 134/88; PULSE 71; RESP 16; O2SAT 98
== END 2022-12-11 11:14 | disposition home or self-care (01) ==
PROVIDERS: Emergency Provider Emergency Medicine; PCP Nurse Practitioner Adult Health; Visit Provider Emergency Medicine
DX: R10.2 Pelvic and perineal pain (principal); M06.9 Rheumatoid arthritis, unspecified; Z79.1 Long term (current) use of non-steroidal anti-inflammatories (NSAID); N83.209 Unspecified ovarian cyst, unspecified side
CPT/HCPCS: 76830; 81001; 81025; 87077; 87086; 87088; 87186; 96372; 99283; J7030

== ENCOUNTER 2022-12-17 17:51 | Emergency (ER) | payer OTHER, SELFPAY ==
[2022-12-17 17:52] VITALS: BP 123/67; PULSE 108; RESP 23; TEMP 36.9; O2SAT 96; BMI 43.7
--- NOTE | 2022-12-17 18:09 | NURSING ---
NO OLD EKGS
--- NOTE | 2022-12-17 18:35 | EKG12_ITS ---
Test Reason : CP Blood Pressure : / mmHG Vent. Rate : 097 BPM Atrial Rate : 097 BPM P-R Int : 154 ms QRS Dur : 078 ms QT Int : 348 ms P-R-T Axes : 054 051 038 degrees QTc Int : 441 ms Normal sinus rhythm Normal ECG Confirmed by MORGAN LEACH, ISAAC ([id number]), photographic editor THADDEUS BENITO ([id number]) on 12/18/2022 10:00:42 AM Referred By: BB Confirmed By:ISAAC MORA MD
[2022-12-17 18:54] LABS: Absolute Lymphocyte Count 2.87 X10^3/uL (0.83-4.51); Absolute Neutrophil Count 5.6 X10^3/uL (2.0-7.7); Basophil# 0.06 X10^3/uL; Basophil% 0.6 % (0-1); Eosinophil# 0.51 X10^3/uL; Eosinophils% 5.1 % (0-5); Hematocrit 38.4 % (37-47); Hemoglobin 12.7 g/dL (12.0-15.0); Lymphocyte # 2.87 X10^3/ul (0.83-4.51); Lymphocyte % 28.5 % (19-41); Mean Corp Hgb Conc 33.1 g/dL (32-36); Mean Corpuscular Hgb 29.8 pg (27.0-32.0); Mean Corpuscular Volume 90.1 fL (81-99); Mean Platelet Vol. 10.9 fl (6.2-12.0); Monocyte% 9.9 % (0-10); NRBC Flagged by Analyzer 0 % (0-5); Neutrophil # 5.59 X10^3/uL (2.7-7.7); Neutrophil % 55.5 % (47-70); Platelet Count 438 K/mm3 (150-450); RBC Distribution Width CV 12.6 % (11.6-14.6); RBC Distribution Width SD 41.5 fl (35.1-43.9); Red Blood Count 4.26 M/mm3 (4.2-5.4); White Blood Count 10.1 K/mm3 (4.4-11.0)
--- NOTE | 2022-12-17 18:55 | RAD_ITS ---
INDICATION: Chest pain EXAMINATION/TECHNIQUE: X-RAY - portable upright AP chest x-ray COMPARISON: 07/30/2018 FINDINGS: LINES/DEVICES: None. LUNGS: No consolidation, edema or effusion. No pneumothorax. MEDIASTINUM AND CARDIOVASCULAR STRUCTURES: Cardiac silhouette not enlarged. Central airways and mediastinal contour are unremarkable. BONES AND SOFT TISSUES: Unremarkable. RAD/Chest 1 View (Portable) IMPRESSION: No radiographic evidence of acute cardiopulmonary disease. Electronically Signed: Devaughn Avila MD at 19:49 EST ,
[2022-12-17] MEDS: Ketorolac 15 MG/ML Vial IV (19:01)
[2022-12-17 19:06] LABS: D-Dimer Quantitative (DVT/PE) 0.76 FEU/ug/m (0.27-0.49)
[2022-12-17 19:09] LABS: Anion Gap 10 (5-15); BUN 13 mg/dL (7-18); BUN/Creat Ratio 17.7 RATIO (10-20); Calcium,Total 9.2 mg/dL (8.5-10.1); Chloride 105 mmol/L (98-107); Creatinine, Serum 0.73 mg/dL (0.55-1.02); EST Glomerular Filtration Rate 103 mL/min (>60); Est Glom Filt Rate - Afr Amer 124 mL/min (>60); Glucose 97 mg/dL (74-106); Potassium 3.7 mmol/L (3.5-5.1); Sodium Level 140 mmol/L (136-145); Troponin-I HS 3 pg/mL (3.0-54.0)
--- NOTE | 2022-12-17 19:11 | CT_ITS ---
STUDY: CTA CHEST REASON FOR EXAM: Female, 22 years old. CP, elevated D-dimer RADIATION DOSAGE (If Supplied By Facility): CTDIvol = ( 10.29 ) mGy, DLP = ( 564.79 ) mGycm TECHNIQUE: The examination was performed with the intravenous administration of 100mL Isovue-370. Post-processing of the angiographic images was performed, with multiplanar reformation and 3D reconstruction. Individualized dose optimization techniques were used for this CT. COMPARISON: None. FINDINGS: Normal enhancement of the main pulmonary artery and right and left pulmonary arteries. Normal enhancement of the bilateral peripheral pulmonary arteries. There is no demonstrated pulmonary embolism. Normal thoracic aorta and visualized great vessels. There is no demonstrated aortic dissection. Normal heart and pericardium. Normal mediastinum. Normal hilar regions. Normal visualized trachea and bronchi. Normal pulmonary parenchyma. No pleural effusions. Normal chest wall structures. No acute or aggressive osseous abnormality. No acute findings in the upper abdomen. CT/CTA Chest W/WO Contrast IMPRESSION: Normal CTA chest examination, without a demonstrated pulmonary embolism or arterial dissection. No acute pulmonary findings. Electronically Signed: Devaughn Avila MD at 19:59 EST ,
--- NOTE | 2022-12-17 19:21 | ED.VIS.CHEST ---
HPI History of Present Illness Chief Complaint: Chest Pain Informant: patient Narrative Narrative: Patient reports a sense of right-sided chest pain. This started a few hours ago. It was in the right anterior ribs. She felt as though there was something moving in there when she took a deep breath. Breathing did make it hurt a little bit. However, she was not actually short of breath. It did seem to radiate at times up to her shoulder and upper arm and her neck. Moving these areas also sore. She did fall asleep on the couch about 2 days ago but did not have pain until today. No coughing. No fevers or chills. Although she had an ovarian cyst recently she is not having abdominal pain. No diaphoresis. No numbness or tingling. No headache. She is not on blood thinners. She has had no recent travel surgery immobilization personal or family history of DVT or PE. She was just prescribed control pills after an [employer] appointment today but she has not yet taken them so she is not on any exogenous hormone therapy. No leg pain or swelling. No history of blood pressure diabetes high cholesterol smoking or family history of heart disease. [facility] Medical History Acid reflux Hx of ovarian cyst Rheumatoid arthritis Home Medications NK 12/17/22 [History Last Taken Unknown] Allergy/AdvReac Type Severity Reaction Status Date / Time No Known Allergies Allergy Verified 12/17/22 17:55 Family History Grandmother Diabetes Lupus Grandfather Cancer Social History Smoking Status: Never smoker ROS ROS ED Constitutional Constitutional ED: Denies chills or fever(s) Eyes Eyes: Denies change in vision ENT ENT ED: Denies rhinorrhea or sore throat Cardiovascular Cardiovascular: Reports as per HPI Respiratory/Chest Respiratory/Chest: Denies cough or dyspnea Gastrointestinal Gastrointestinal: Denies nausea or vomiting Genitourinary Genitourinary ED: Denies hematuria Musculoskeletal Musculoskeletal: Denies back pain or myalgias Integumentary Denies rash Neurologic Neurologic: Denies headache(s) or paresthesias Hematologic/Lymphatic Hematologic/Lymphatic: Denies easy bleeding or easy bruising EXAM Physical Exam Narrative Exam Narrative: Patient sitting calmly in bed. She looks comfortable. She carries on normal conversation. Nontoxic. HEENT shows no sign of trauma. Mucous membranes are moist. Eyes show no icterus. No JVD seen on the neck. She has a little muscular tenderness to the right side but no rashes. Lungs are clear bilaterally. She has a little chest wall tenderness anteriorly low but no clicking is felt. No rashes. Her breath sounds are equal bilaterally. No subcu air. No obvious pain with a deep breath. Heart is regular currently her rate is about 95 on the monitor. No ectopy. Pulses are normal x4. Abdomen is soft completely nontender. : No CVA or suprapubic tenderness Extremities no edema, tenderness along the deep venous system, distended veins or asymmetry. Neurologically patient is awake alert appropriate with no focal deficit. Const Vital Signs: 12/17/22 17:52 12/17/22 17:57 Temperature 98.5 F Temperature Source Oral Pulse Rate 108 H Respiratory Rate 23 H Respiratory Effort Normal Respiratory Pattern Normal Blood Pressure 123/67 H Blood Pressure Mean 85 Pulse Ox 96 Oxygen Delivery Method Room Air MDM MDM MDM Narrative Medical decision making narrative: Depend interpretation of the patient's single view AP chest x-ray showed no acute process. Radiology's was similar. Patient also had a CTA of the chest done because of an elevated D-dimer and right-sided chest pain. The CTA showed no pulmonary embolism or dissection and no acute pulmonary findings. Patient's blood work shows normal CBC and electrolytes. Troponin is negative. D-dimer is elevated and the CT was done as above. Patient does state that she slept on the couch in a funny position a couple days ago. But she did not hurt until today. This very well could be the cause however. I think ice, Tylenol, [id number] nonsteroidals are appropriate. If she develops fever, worsening pain, or other concern concerns she should return. Lab Data Attestation: I reviewed the patient's lab results. Labs: Laboratory Results - last 24 hr 12/17/22 12/17/22 12/17/22 18:40 18:40 18:40 WBC 10.1 RBC 4.26 Hgb 12.7 Hct 38.4 MCV 90.1 MCH 29.8 MCHC 33.1 RDW Std Deviation 41.5 RDW Coeff of Chaparrita 12.6 Plt Count 438 MPV 10.9 Immature Gran % (Auto) 0.400 Neut % (Auto) 55.5 Lymph % (Auto) 28.5 [place] % (Auto) 9.9 Eos % (Auto) 5.1 H Baso % (Auto) 0.6 Absolute Neuts (auto) 5.6 Absolute Lymphs (auto) 2.87 Nucleated RBC % 0 D-Dimer Quant (PE/DVT) 0.76 H* Sodium 140 Potassium 3.7 Chloride 105 Carbon Dioxide 25.0 Anion Gap 10 BUN 13 Creatinine 0.73 Estim Creat Clear Calc 98.30 Est GFR (MDRD) Af Amer 124 Est GFR (MDRD) Non-Af 103 BUN/Creatinine Ratio 17.7 Glucose 97 Calcium 9.2 Troponin I High Sens 3 Radiography Diagnostic Testing: Clinical Impression(s) from Imaging Studies Chest X-Ray 12/17/22 18:55 IMPRESSION: No radiographic evidence of acute cardiopulmonary disease. Electronically Signed: Devaughn Avila MD at 19:49 EST , Chest CTA 12/17/22 19:11 IMPRESSION: Normal CTA chest examination, without a demonstrated pulmonary embolism or arterial dissection. No acute pulmonary findings. Electronically Signed: Devaughn Avila MD at 19:59 EST , Discharge Plan Triage Chief Complaint: Chest Pain ED Provider: Berhane Faust Dx/Rx/DC Orders Clinical Impression: Right-sided chest pain Instructions: ED Chest Pain, Uncertain Cause, ED Chest Wall Strain Prescriptions: No Action NK Primary Care Provider: Haley Gilbert NP Referrals: Haley Gilbert NP, [facility] [Primary Care Provider] - 3-5 Days if not improving Disposition Disposition: Home, Self Care
[2022-12-17 21:32] VITALS: BP 112/68
== END 2022-12-17 21:32 | disposition home or self-care (01) ==
PROVIDERS: Emergency Provider Emergency Medicine; PCP Nurse Practitioner Adult Health; Visit Provider Emergency Medicine
DX: R07.9 Chest pain, unspecified (principal); M06.9 Rheumatoid arthritis, unspecified; K21.9 Gastro-esophageal reflux disease without esophagitis
CPT/HCPCS: 71045; 71275; 80048; 84484; 85025; 85379; 93005; 96361; 96374; 99285; J7030; Q9967

== ENCOUNTER 2023-01-31 02:49 | Emergency (ER) | payer OTHER, SELFPAY ==
[2023-01-31 02:49] VITALS: BP 133/83; PULSE 110; RESP 18; TEMP 36.6; O2SAT 99; BMI 44.7
--- NOTE | 2023-01-31 02:58 | RAD_ITS ---
INDICATION: injury / ? FB EXAMINATION/TECHNIQUE: X-RAY - RIGHT XR Hand Min 3 Views COMPARISON: Right wrist x-rays from 12/28/2019. FINDINGS: SOFT TISSUES: Unremarkable. BONES/JOINTS: No fracture or dislocation. No significant degenerative changes. No erosive changes. RAD/Hand Min 3 Views IMPRESSION: Unremarkable views of the right hand. No evidence of a foreign body. Electronically Signed: Riccardo Espino DO at 3:14 EDT ,
[2023-01-31] MEDS: Lidocaine 2% (20 ml mdv) 20 ML Vial INFILT (03:04)
--- NOTE | 2023-01-31 03:53 | EX.ED.DYSGE1 ---
HPI History of Present Illness Chief Complaint: Laceration Narrative Narrative: Patient is a 23-year-old female with past medical history of rheumatoid arthritis but does not take any type of disease modifying antirheumatic agent. 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 She states when she landed the jars shattered and cut her right hand. She states this occurred a few hours ago. She denies striking her head or any loss of consciousness. She denies any numbness tingling or weakness but has concerned that she may need sutures based on the laceration to her right hand and therefore comes in for evaluation [facility] Medical History Acid reflux Hx of ovarian cyst Rheumatoid arthritis Home Medications NK 12/17/22 [History Last Taken Unknown] Allergy/AdvReac Type Severity Reaction Status Date / Time No Known Allergies Allergy Verified 01/31/23 02:53 Family History Grandmother Diabetes Lupus Grandfather Cancer Social History Smoking Status: Never smoker ROS ROS ED Constitutional Constitutional ED: Denies chills or fever(s) Eyes Eyes: Denies change in vision ENT ENT ED: Denies sore throat Cardiovascular Cardiovascular: Denies chest pain Respiratory/Chest Respiratory/Chest: Denies cough or dyspnea Gastrointestinal Gastrointestinal: Denies abdominal pain, diarrhea, nausea or vomiting Genitourinary Genitourinary ED: Denies dysuria Musculoskeletal Musculoskeletal: Reports other; Denies back pain or neck pain Integumentary Reports other Details: Positive right hand/finger laceration ; Denies rash Neurologic Neurologic: Denies headache(s) or paresthesias Hematologic/Lymphatic Hematologic/Lymphatic: Denies easy bleeding or easy bruising EXAM Physical Exam Const Vital Signs: 01/31/23 02:49 Temperature 97.9 F Temperature Source Temporal Pulse Rate 110 H Respiratory Rate 18 Blood Pressure 133/83 H Blood Pressure Mean 99 Pulse Ox 99 Oxygen Delivery Method Room Air Positive well nourished and well developed General Appearance ED: well developed HEENT HEENT Narrative: Normocephalic atraumatic Eyes PERRL and EOMs intact bilaterally Neck supple Resp normal respiratory effort and clear to auscultation bilaterally Cardio regular rate and regular rhythm Extremity Extremity Narrative: Right upper extremity is neurovascularly intact; AIN/PIN are intact and normal. Patient has full active range of motion. There is a U-shaped subcutaneous layer deep laceration along the dorsal aspect of the right fourth proximal phalanx. There is mild ooze of blood with no foreign body and no ligamentous or tendon injury. No bony deformity or joint effusion noted. Remainder the exam is normal Neuro oriented x3 and CN's II-XII intact bilaterally Sensorium / Orientation: alert Psych mental status grossly normal Skin Skin Narrative: Laceration to the right hand along the fourth proximal phalanx as documented above MDM MDM MDM Narrative Medical decision making narrative: Patient reported a mechanical fall she did not strike her head or have loss of consciousness nor is she on blood thinners so there is no need for cardiac or syncope work-up or head CT. As she reported falling and having glass shatter causing the laceration I did elect to perform an x-ray to make sure there is no foreign body or fracture. X-ray revealed no foreign body or fracture. By exam she has no ligamentous or tendon injury which would require emergent orthopedic consultation. Therefore the patient had the wound closed as documented below. As she is not on immunosuppressive drugs I felt no need for prophylactic antibiotics and based on the nature of the laceration patient felt that tetanus update was not necessary. Therefore the wound was closed and patient be discharged with outpatient follow-up. Patient had the right fourth digit cleaned with chlorhexidine. It was anesthetized in digital block fashion with 6 mL of 2% lidocaine without epinephrine. The wound was copiously irrigated with normal saline. Then eight 4-0 Ethilon sutures were placed in simple interrupted fashion. This brought the wound together good approximation. Patient tolerated the procedure well without complication. History & Record Review Discussion w/independent historian: Patient and Friend Radiography Diagnostic Testing: Clinical Impression(s) from Imaging Studies Hand X-Ray 01/31/23 02:58 IMPRESSION: Unremarkable views of the right hand. No evidence of a foreign body. Electronically Signed: Riccardo Espino DO at 3:14 EDT , Right hand x-rays interpreted by the emergency medicine physician reveals no acute fracture dislocation or foreign body Discharge Plan Triage Chief Complaint: Laceration ED Provider: Uzair Boyer Dx/Rx/DC Orders Clinical Impression: Laceration of right hand, Hx of rheumatoid arthritis Instructions: ED Laceration, Hand: All Closures Prescriptions: No Action NK Primary Care Provider: Haley Gilbert NP Referrals: Haley Gilbert NP, [facility] [Primary Care Provider] - Activity Restrictions/Additional Instructions: Please return to the ER or see your family doctor in 7 to 10 days for suture removal. If you have any further concerns please return for repeat evaluation Disposition Disposition: Home, Self Care
== END 2023-01-31 04:15 | disposition home or self-care (01) ==
PROVIDERS: Emergency Provider Emergency Medicine; PCP Nurse Practitioner Adult Health; Visit Provider Emergency Medicine
DX: S61.411A Laceration without foreign body of right hand, initial encounter (principal); M06.9 Rheumatoid arthritis, unspecified; W01.110A Fall on same level from slipping, tripping and stumbling with subsequent striking against sharp glass, initial encounter; Y93.89 Activity, other specified; Y99.0 Civilian activity done for income or pay; Y92.89 Other specified places as the place of occurrence of the external cause
CPT/HCPCS: 12001; 73130; 99283

== ENCOUNTER 2023-04-19 08:00 | Outpatient (RCR) | payer OTHER, SELFPAY ==
--- NOTE | 2023-04-19 09:00 | BH.COMM_ITS ---
Communication Note - Communication with Client Communication Note: Completed initial paperwork. [place] Suicide Screening was completed. No significant changes since pre-admission screening. Consulted with Dr. Billings with plan to admits to [facility] with dx of f33.2
--- NOTE | 2023-04-19 09:05 | BH.SGPN.GN ---
Behaviors/Verbalizations/Mental Status: [] Eye contact is good. Motor activity is appropriate. Appearance is casual. Speech is Appropriate. Mood is anxious. Affect is congruent. Thoughts are linear and logical. No evidence of psychosis. Client Response/Progress/Benefit: [] Pt participated at times during the group discussion. Attentive. Shared with the group that today is her first day in IOP. Shared that she entered IOP to gain clarity and to learn coping skills to manage depression, anxiety, and negative automatic thoughts. Group welcomed pt to the group, provided feedback/advice for her first day in IOP, and provided support which was beneficial. Will continue in IOP to maintain safety, increase healthy coping skills, and improve functioning. Narrative Note: []
--- NOTE | 2023-04-19 10:05 | BH.SGPN.GN ---
Behaviors/Verbalizations/Mental Status: []Pt alert and oriented, casually dressed and groomed. Eye contact good. Motor activity appropriate. Speech within normal limits. Affect congruent, mood anxious and depressed. Thoughts linear, logical, no signs of hallucinations or delusions. Client Response/Progress/Benefit: []Pt first day in IOP tx. She was an active participant AEB contributing to discussion, taking notes, and engaging in group activity. Connected with the topic of pitfalls and listened to group discussion on internal and external barriers that prevent from choosing a healthier path to mental wellness. Group worked together to identify examples of personal internal pitfalls and pt identified theirs as relying heavily on her partner and struggling with independent coping skill as a result.? Pt benefited from group as Pt learned to better identify potential barriers to improving mental health symptoms. Pt will continue IOP tx to prevent decompensation, increase distress tolerance skills, and gain skills for healthy boundary setting with supports. ? Narrative Note: []
--- NOTE | 2023-04-19 11:10 | BH.SGPN.GN ---
Behaviors/Verbalizations/Mental Status: []Pt alert and oriented, casually dressed and groomed. Eye contact good. Motor activity appropriate. Speech within normal limits. Affect congruent, mood anxious. Thoughts linear, logical, no signs of hallucinations or delusions. Client Response/Progress/Benefit: []Pt receptive of session, engaged throughout AEB actively listening and contributing to discussion, as well as taking notes.? Pt participated in the experiential activity and did well to communicate ideas with peers and manage emotions. Pt and group processed how being open-minded and having good communication positively impacted the group. Group worked together to identify different coping skills to help manage pitfalls. Pt identified pitfalls they struggle with and shared wanting to work on pitfall of all or nothing thinking by practicing looking at the balance. ?Benefited from identifying personal pitfalls and strategies to overcome these pitfalls. Will continue IOP tx to prevent decompensation, improve daily functioning, and increase distress tolerance. Narrative Note: []
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
--- NOTE | 2023-04-21 10:18 | BH.SGPN.GN ---
Behaviors/Verbalizations/Mental Status: []Eye contact is good. Motor activity is appropriate. Appearance is casual. Speech is Appropriate. Mood is depressed and anxious. Affect is congruent. Thoughts are linear and logical. No evidence of psychosis. Client Response/Progress/Benefit: []Pt was an active participant in group discussions. Attentive during psychoeducation. Engaged and provided feedback along with peers on defining anxiety. Group worked together to identify the benefits of anxiety which included; motivates us, helps us prepare, helps us perform, helps us identify danger, and can keep us safe. Participated during interactive discussion on how anxiety impacts one physically (increased heart rate, sweaty hands, etc), cognitively (poor concentration, fogginess, catastrophizing, etc), and behaviorally (avoidance, anger, safety behaviors, etc). Shared commonly experiencing physical anxiety symptoms of shakiness, increased temp., migraines, and restlessness. Benefited from increase insight into anxiety's benefits and detriments. Will continue in IOP to prevent decompensation, stabilize mood, increase healthy coping, and improve functioning. Narrative Note: []
[2023-04-21 10:19] VITALS: BP 151/89; PULSE 95
--- NOTE | 2023-04-21 11:15 | BH.SGPN.GN ---
Behaviors/Verbalizations/Mental Status: []Pt alert and oriented, casually dressed and groomed. Eye contact good. Motor activity appropriate. Speech within normal limits. Affect congruent, mood anxious. Thoughts linear, logical, no signs of hallucinations or delusions. Client Response/Progress/Benefit: []Pt was an active participant in group discussion AEB providing contributions throughout group and listening attentively to others. Attentive during psychoeducation on mindfulness and ways to utilize mindfulness techniques to improve anxiety management. The group practiced deep breathing and the 5-senses during session. Engaged and attentive during group brainstorm of healthy anxiety reduction skills including thought challenging and behavioral changes. Appeared to benefit from practicing in the moment coping skills and increasing repertoire of anxiety management skills. Pt selected wanting to work on using the 5-senses to manage her physical symptoms of anxiety. Pt?s second day of IOP tx. Pt will continue IOP tx to prevent decompensation, gain healthy coping skills, and increase social support. Narrative Note: []
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
--- NOTE | 2023-04-21 13:12 | BH.DR.ITP ---
Initial Treatment Plan Patient Information Visit Information: ADMISSION DATE: EXPECTED LOS: 4-6 weeks Problems/Symptoms Problem #1:: Depression Symptom:: Sadness, hopelessness, anhedonia, hypersomnia, low energy, guilt, passive thoughts of Problem #2:: Anxiety Symptom:: Worry, rumination, avoidance, flashbacks, reexperiencing
--- NOTE | 2023-04-21 15:50 | BH.MDN ---
Multi-Disciplinary Note - Note 45-min Individual Time Started:: 12:15 Date: 04/21/23 Purpose of session/treatment goals addressed:: To gather information on pt's current stressors, symptoms, triggers, and tx goals. Another goal was to build rapport and provide emotional support. Eye Contact:: Good Motor Activity:: Restless Appearance:: Casual Speech:: Appropriate Mood:: Anxious, Dysthymic Affect:: Congruent Thoughts:: Racing, No evidence of hallucinations/delusions noted Staff Interventions:: psychoeducation on:, CBT techniques, rapport building, strengths perspective, treatment planning, goal setting Client Response:: Pt responded well to session, open to meeting with therapist. Pt reports she has had therapy off and on in the past, but she has never had group therapy. Pt discussed her therapy goals which included: increase emotional regulation, reduce distortions and catch her negative thinking, and better manage her anxiety and fear of abandonment. Pt stated her anxious thoughts and fear of abandonment lead pt to believe that her is going to see the real me and want to leave. Pt shared her has not given any indication that he is unhappy, but pt reports it's how I perceive things. Pt stated these anxious thoughts have led to self-sabotaging behaviors and unhelpful decisions. Pt receptive to learning more about her attachment, thought patterns, and triggers while in IOP. Pt shared a little about her history including her complicated relationship with her mom and dad as well as her estrangement from her sister. Pt does see how her upbringing has likely impacted pt's attachment, thought patterns, and fear of abandonment. Pt stated she often masked her true emotions for fear that she would be too much. Pt reported that now she struggles with feeling her feelings instead of numbing. Pt stated she does not have outpatient counseling or psychiatry and will need these before discharge. Risks/Concerns:: Pt denies any suicidal ideations, plan, or intent. Pt denies HI. Pt is future oriented. Progress Toward Goals/Plan:: Pt's first week of IOP tx and pt reports the program has been good so far. Pt's symptoms are currently impacting her relationships and overall functioning. Pt stated she has anxious thoughts constantly which impacts pt's self-esteem and triggers fear of abandonment. Pt endorses mood instability, anxiety, a depressed mood, and avoidance. Pt will continue IOP tx to prevent decompensation, improve daily functioning, and increase ability to manage anxious thought patterns. Time Stopped:: 12:55
--- NOTE | 2023-04-21 15:51 | BH.MTP_ITS ---
Master Treatment Plan - Patient Information Program Physician:: Dr. Sharon Blair Primary Therapist:: Clara BLAS - Psychiatric Diagnoses Psychiatric Diagnoses:: Major depressive disorder, recurrent, severe without psychosis F 33.2; Generalized anxiety disorder; PTSD; Cluster B traits Diagnosis Code(s):: F 33.2 - Estimated LOS Estimated LOS (in weeks):: 6 Problem/Goal #1 - Problem/Goal #1 Stated Goal:: Pt will reduce depressive symptoms, negative self-talk, thoughts of , hopelessness, and anhedonia due to Major Depressive Disorder through [facility] Services. Description of Barriers: Pt does not have outpatient counseling and is looking for a new psychiatrist. Pt has poor emotion regulation, significant ruminations, difficulty maintaining a job due to mood instability, and isolative behaviors. Pt also reports numerous distortions that impact her view of self and impact relationships. Functional Impact: Pt is a 23-year-old female with a history of MDD. Pt was referred to [facility] tx by her outpatient personnel psychologist due to worsening depression that was impacting functioning. Pt reports she had a mental breakdown a year ago and pt continues to struggle with functioning, isolation, and depression. Pt currently endorses a depressed mood, increased sleep, hopelessness, worthlessness, lack of motivation, low energy, anhedonia, and isolative behaviors. Pt also endorses survival ambivalence and feeling like a failure. Pt stated her emotional dysregulation impacts her overall functioning and relationships. Goal Relevant Strengths/Supports: Pt is motivated, has insight, and is willing to learn. For primary support she has her mom and . - Objectives Objective #1 Stated Objective: Pt will learn and utilize 2-3 healthy coping strategies to better manage depressive symptoms and reduce DSM-5 symptoms for depression, anger, and SI. Interventions: Through group and individual sessions, therapist will help pt identify triggers and warning signs of depression and emotional dysregulation including emotional, physical, and behavioral changes. Therapist will teach pt various coping skills to manage her symptoms. Therapist will use cognitive r estructuring techniques and help pt gain awareness of negative thoughts that reinforce depressive cycles. Therapist will help pt incorporate mindfulness and emotional regulation skills when dealing with difficult situations. Discharge Criteria: Pt will have met this goal when she can report learning and using at least 2 coping skills to manage depressive symptoms and her DSM-5 scores for depression, anger, and SI have decreased. Target Date: 05/31/23 Review Date: 05/10/23 Status: open Objective #2 Stated Objective: Pt will identify at least 2-3 negative self-talk messages used to reinforce negative core beliefs, worthlessness, and isolation and replace thoughts with balanced, realistic messages. Interventions: Therapist will help pt identify distorted, negative beliefs about self and replace with more realistic, affirmative messages. Therapist will use CBT and DBT to help pt increase insight to the connection between thoughts, emotions, and behaviors. Therapist will encourage pt to practice thought challenging. Discharge Criteria: Pt will have achieved this goal when can verbalize at least 2 cognitive distortions and effectively replace those thoughts with affirmative messages. Target Date: 05/31/23 Review Date: 05/10/23 Status: open Problem/Goal #2 - Problem/Goal #2 Stated Goal:: Will reduce ruminations and anxiety through increasing emotional regulation and distress tolerance skills Description of Barriers: Pt does not have outpatient counseling and is looking for a new psychiatrist. Pt has poor emotion regulation, significant ruminations, difficulty maintaining a job due to mood instability, and isolative behaviors. Pt also reports numerous distortions that impact her view of self and impact relationships. Functional Impact: Pt is a 23-year-old female with a history of MDD. Pt was referred to [facility] tx by her outpatient personnel psychologist due to worsening depression that was impacting functioning. Pt reports she had a mental breakdown a year ago and pt continues to struggle with functioning, isolation, and depression. Pt currently endorses a depressed mood, increased sleep, hopelessness, worthlessness, lack of motivation, low energy, anhedonia, and isolative behaviors. Pt also endorses survival ambivalence and feeling like a failure. Pt stated her emotional dysregulation impacts her overall functioning and relationships. Goal Relevant Strengths/Supports: Pt is motivated, has insight, and is willing to learn. For primary support she has her mom and . - Objectives Objective #1 Stated Objective: Pt will identify 2-3 anxiety triggers and 2 coping skills to use when feeling anxious to manage anxiety as shown by reducing DSM-5 scores for anxiety Interventions: Therapist will provide education on anxiety, avoidance behaviors, and maintenance cycles. Therapist will help pt explore personal symptoms and warning signs of anxiety. Therapist will teach pt coping skills to improve emotional regulation, mindfulness, and distress tolerance to help pt cope with anxiety in the moment. Discharge Criteria: Pt will have accomplished this goal when she can identify at least 2 triggers and report using 2 coping skills to manage anxiety. Additionally, pt will have accomplished this goal AEB reduction of DSM-5 scores for anxiety. Target Date: 05/31/23 Review Date: 05/10/23 Status: open Objective #2 Stated Objective: pt will identify 2-3 cognitive distortions that lead to rumination and learn 2-3 ways to manage these thoughts to better manage anxiety. Interventions: Therapist will provide education on the most common cognitive distortions and teach pt the connection between thoughts, emotions, and feelings. Therapist will assist pt in identifying, challenging, and replacing dysfunctional thoughts with positive, more realistic thoughts. Therapist will use CBT and DBT techniques to help pt gain awareness of thinking errors and learn how to more effectively handle negative thoughts. Discharge Criteria: Pt will have accomplished this goal when can identify at least 2 cognitive distortions and at least 2 coping skills to manage negative thoughts. Target Date: 05/31/23 Review Date: 05/10/23 Status: open
--- NOTE | 2023-04-21 15:51 | BH.PSA ---
Development & Family of Origin - Family History Family History: Family History (Last Reviewed 02/08/23 @ 08:37 by Elisabeth Fletcher) Grandmother Diabetes Lupus Grandfather Cancer Suicide Assessment Treatment Plan Recommendations
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
--- NOTE | 2023-04-23 10:10 | BH.SGPN.GN ---
Behaviors/Verbalizations/Mental Status: []Pt alert and oriented, neatly dressed and groomed. Eye contact good. Motor activity appropriate. Speech within normal limits. Affect congruent, mood euthymic. Thoughts linear, logical, no signs of hallucinations or delusions. Client Response/Progress/Benefit: []Pt was an active participant in group discussion and experiential activity. Attentive during psychoeducation on possible causes to developing and maintain unhealthy coping skills which can impact mental health. Pt contributed during interactive discussion identifying common unhealthy coping skills and identified personal ones as shutting down, ?creating chaos,? and avoiding. Able to make connections between experiential activity (folder towers) and importance of having a solid base of internal and external coping skills. Benefited from increased awareness of internal and external coping skills and identifying unhealthy coping skills. Pt will continue IOP tx to prevent decompensation, improve emotional regulation skills, and improve daily functioning. ? Narrative Note: []
--- NOTE | 2023-04-23 11:00 | BH.SGPN.GN ---
Behaviors/Verbalizations/Mental Status: []Pt alert and oriented, casually dressed and groomed. Eye contact fair. Motor activity appropriate. Speech within normal limits. Affect congruent, mood anxious. Thoughts linear, logical, no signs of hallucinations or delusions Client Response/Progress/Benefit: []Pt responded well to session, taking notes and contributing. Group discussed the different categories of coping skills which included distraction, emotional release, grounding, self-love, and thought challenging.? Pt participated in creating a coping skills ?menu? from the five categories of coping skills. Pt's coping skill menu included: cleaning, engaging her senses, exercise, self-compassion, and journaling her GLAD. Appeared to benefit from increasing repertoire of healthy coping skills. Will continue IOP tx to increase distress tolerance, continue use of healthy coping skills, and prevent decompensation.
--- NOTE | 2023-04-26 09:00 | BH.SGPN.GN ---
Behaviors/Verbalizations/Mental Status: [] Eye contact is good. Motor activity is appropriate. Appearance is casual. Speech is Appropriate. Mood is anxious/irritable. Affect is congruent. Thoughts are linear and logical. No evidence of psychosis. Reviewed daily check in sheet and no reports of suicidal ideations or intent. Client Response/Progress/Benefit: [] Pt was an active participant in group discussion. Attentive. Daily symptom tracker notes 4/5 for irritability and 3/5 for depression. Emotion for today is agitated. She shared a couple mental health wins which included opposite action and acceptance of change in routine. Elaborated on how these were beneficial to her mental health. Describes being agitated today and is unsure what is triggering this emotion. Limited progress noted. She continues to report intrusive thoughts and emotions which are impacting her functioning. Benefited from group support, encouragement, and feedback. Will continue in IOP to prevent decompensation, improve functioning, and increase healthy coping strategies. Narrative Note: []
--- NOTE | 2023-04-26 10:12 | BH.SGPN.GN ---
Behaviors/Verbalizations/Mental Status: []Pt alert and oriented, appropriate grooming/appearance. Eye contact good. Motor activity appropriate. Speech within normal limits. Affect congruent, mood depressed and anxious. Thoughts linear, logical, no signs of hallucinations or delusions. Client Response/Progress/Benefit: []Pt was an active participant in group discussions. Attentive during psychoeducation. Contributed during interactive discussions in which peers attempted to define crisis. Pt identified some examples of potential crisis. Group also worked together to identify unhealthy responses to crisis which included; isolation, self-harm, substance abuse, avoidance, and lashing out. Pt identified personal warning signs as apathy, racing thoughts, and loss of motivation. Benefited from increased understanding of crisis and awareness of personal responses to crisis. Pt will continue IOP tx to prevent decompensation and continue to promote healthy skill application, as well as improve use of distress tolerance skills. Narrative Note: []
--- NOTE | 2023-04-26 11:12 | BH.SGPN.GN ---
Behaviors/Verbalizations/Mental Status: []Pt alert and oriented, casually dressed and groomed. Eye contact good. Motor activity appropriate. Speech within normal limits. Affect congruent, mood euthymic. Thoughts linear, logical, no signs of hallucinations or delusions. Client Response/Progress/Benefit: []Pt engaged throughout group session AEB providing contributions to discussion and working within the small group. Pt identified their personal warning signs for crisis and gained further awareness of earliest warning signs. Pt created a crisis action plan to help Pt better manage personal crisis warning signs. Pt shared an action plan for their warning sign of apathy which include: watch content with specific intention, grounding, journaling, and communicate with support. Pt appeared to benefit from creating a crisis action plan and increasing self-awareness. Pt to continue IOP tx to combat distorted thoughts, improve daily functioning, and increase emotional regulation skills. ?? Narrative Note: []
--- NOTE | 2023-04-26 14:30 | BH.MDN ---
Multi-Disciplinary Note - Note 45-min Individual Time Started:: 12:10 Date: 04/26/23 Purpose of session/treatment goals addressed:: To increase pt's self-awareness of the connection between emotions, thoughts, and behaviors. Eye Contact:: Good Motor Activity:: Appropriate Appearance:: Casual Speech:: Rambling, Rapid Mood:: Anxious, Depressed Affect:: Congruent Thoughts:: Racing, No evidence of hallucinations/delusions noted Staff Interventions:: thought challenging, psychoeducation on: - maintenance cycles and the connection between thoughts and emotions., CBT techniques, strengths perspective, goal setting, other - gave pt homework to finish her maintenance cycles Client Response:: Pt responded well to session, open to meeting with therapist. Pt shared her weekend was alright and that she had a good time with her father on Wednesday. Pt stated she feels apathetic which is one of her warning signs. Pt shared she tries to communicate this with her partner, but he struggles to understand. Pt discussed the communication difficulties she and her have. Pt also shared that her is probably confused because what I need changes. Pt gave examples of usually wanting physical affection, but when she is apathetic she wants not to be touched at all. Explored pt's emotions, behavior urges, and what typically happens to help pt gain insight to her maintenance cycles and what support she might need. Pt gained awareness for her anger and sadness maintenance cycles. Pt also gained awareness of the importance of using direct communication, especially when pt is not in crisis. Pt will complete self-reflection on maintenance cycles for homework. Risks/Concerns:: Pt denies any active suicidal ideations, plan, or intent as of 04/26/23. Progress Toward Goals/Plan:: Pt is responding well to tx and has been consistent with attendance. Limited progress as it is pt's second week of tx. Pt endorses a depressed mood, apathy, lack of motivation, racing thoughts, rapid mood changes, negative thinking patterns, and crying spells. Pt's biggest stressors include finding a job, mood instability, and relationship stress. Pt will continue IOP tx to prevent decompensation, improve daily functioning, and increase emotional regulation skills. Time Stopped:: 12:50
--- NOTE | 2023-04-28 09:00 | BH.SGPN.GN ---
Behaviors/Verbalizations/Mental Status: [] Pt alert and oriented, neatly dressed and groomed. Eye contact good. Motor activity appropriate. Speech within normal limits. Affect congruent, mood anxious. Thoughts linear, logical, no signs of hallucinations or delusions. Reviewed pt?s symptom tracker, no risk for suicidal ideation, plan, or intent 04/28/23 Client Response/Progress/Benefit: []Pt responded well to session, attentive and engaged. Pt reports feeling like I'm just existing this morning. Pt stated she got up late, but still made it to group which is both a win and a stressor. Pt has been applying for jobs and pt plans to call one of the places she applied to today to see where her application is in the process. Pt appeared to benefit from connecting with peers and gaining supportive feedback. Pt will continue IOP tx to increase emotional regulation skills, reduce negative thinking patterns, and improve mood stability. Narrative Note: []
--- NOTE | 2023-04-28 10:10 | BH.SGPN.GN ---
Behaviors/Verbalizations/Mental Status: [] Eye contact is good. Motor activity is appropriate. Appearance is casual. Speech is Appropriate. Mood is anxious. Affect is congurent. Thoughts are linear and logical. No evidence of psychosis. Client Response/Progress/Benefit: [] Pt participated at times during group discussions and interactions. Attentive during psychoeducation on automatic negative thoughts (ANTS) and cognitive distortions. This group was very psychoeducation heavy. Pt did participated during interactive discussions in which peers defined and gave examples of ANTS. Participated during interactive discussion on definition of cognitive distortions and examples related to the 10 cognitive distortions presented. Benefited from increased insight and awareness of cognitive distortions and their impact on emotions and behaviors. Will continue in IOP to prevent decompensation, decrease intrusive thoughts, increase healthy coping skills, and to improve functioning. Narrative Note: []
--- NOTE | 2023-04-28 11:20 | BH.SGPN.GN ---
Behaviors/Verbalizations/Mental Status: []Eye contact is good. Motor activity is appropriate. Appearance is casual. Speech is WNL. Mood is dysthymic and anxious. Affect is congruent. Thoughts are linear and logical. No evidence of psychosis. Client Response/Progress/Benefit: []Pt did well to remain an engaged participant AEB providing input during small group discussion and engaging in activity. Activity involved working with peers to answer questions related to psychoeducation on cognitive distortions and practicing reframing distorted thoughts. Pt collaborated with the group to determine the answers. Able to identify the impact distortions has on pt?s mental health and shared learning that she has more thought distortions impacting her mood than she had previously recognized. Benefited from rehearsing ways to challenge/reframe cognitive distortions and by gaining increased insight into examples/definitions of 10 most common cognitive distortions. Will continue IOP to improve coping skill application, challenge distorted thought patterns, and prevent decompensation. Narrative Note: []
--- NOTE | 2023-04-30 09:00 | BH.SGPN.GN ---
Behaviors/Verbalizations/Mental Status: [] Eye contact is good. Motor activity is appropriate. Appearance is casual. Speech is Appropriate. Mood is euthymic. Affect is full. Thoughts are linear and logical. No evidence of psychosis. Reviewed daily check in sheet and no reports of suicidal ideations or intent. Client Response/Progress/Benefit: [] Pt was an active participant in group discussion. Attentive. Daily symptom tracker notes 2/5 for irritability and /5 for depression. Mental health wins include I applied for a another job. Shared that she is very hopeful about his job and feels comfortable with the type of work. Briefly shared her struggles with maintaining employment in the past years as the result of her mental health. She reports feeling more stable since entering [facility] and reports increased confidence in her ability to function in a job. Shared that she is utilizing skills such as opposite-action and reframing thoughts and has noticed benefits. I'm also not inserting myself into other people's problems. Has taken the role of being supportive rather than attempting to solve other's issues. Also reports increased energy and motivation which has resulted in completing more tasks around the house. Progress noted per pt report. Benefited from group support, encouragement, and feedback. Will continue in [facility] to maintain gains, prevent decompensation, and improve functioning. Narrative Note: []
--- NOTE | 2023-04-30 10:05 | BH.SGPN.GN ---
Behaviors/Verbalizations/Mental Status: []Pt alert and oriented, casually dressed and groomed. Eye contact good. Motor activity appropriate. Speech within normal limits. Affect congruent, mood anxious and euthymic. Thoughts linear, logical, no signs of hallucinations or delusions. Client Response/Progress/Benefit: []Pt responded well to session, attentive during psychoeducation on SMART goals (Specific, Measurable, Achievable, Realistic, and Time-bound). Participated in an interactive discussion with peers in which they worked together to define what a goal is and the benefits of having goals. Group identified benefits as; gives purpose, improves motivation, improves relationships, and personal growth. Participated in small group discussion identifying barriers to setting goals and following through with goals. Pt identified her personal barriers to include lack of resources, self-doubt, and fear of failure. Benefited from increased awareness of benefits and strategies for goal-setting. Pt to continue in IOP to promote mood stability, improve communication with supports, as well as further promote self-care and prevent decompensation. Narrative Note: []
--- NOTE | 2023-04-30 11:10 | BH.SGPN.GN ---
Behaviors/Verbalizations/Mental Status: []Pt alert and oriented, casually dressed, appropriately groomed. Eye contact good. Motor activity appropriate. Speech within normal limits. Affect congruent, mood euthymic. Thoughts linear, logical, no signs of hallucinations or delusions. Client Response/Progress/Benefit: []Pt was engaged during discussion and willing to complete the worksheet challenging them to develop a personal SMART goal. Pt chose the goal of every day focus on specific area of a room to clean for at least 30 minutes. Pt stated this will benefit them by making them feel relieved by seeing a clean room, increase motivation, and improve living conditions. Pt identified barriers which included negative thinking, procrastination, lack of motivation, physical pain, and no support. Identified for procrastination she will set timer, use visual reminder, and put into schedule. Pt receptive to identifying solutions for these barriers and willing to begin working on this goal. Benefited from this group by developing a short-term SMART goal related to mental health. Will continue IOP to increase healthy coping, improve consistent use of skills, and prevent decompensation.
--- NOTE | 2023-05-03 09:00 | BH.SGPN.GN ---
Behaviors/Verbalizations/Mental Status: []Eye contact good. Motor activity appropriate. Speech rapid and tangential. Affect congruent, mood depressed. Thoughts linear, logical, no signs of hallucinations or delusions. Reviewed client?s symptom tracker, no risk for suicidal ideation, plan, or intent as of 05/03/2023. Client Response/Progress/Benefit: []Pt responded well to session, offering supportive statements and engaged. Pt reports feeling depressed this morning, but pt also experienced some relief yesterday too by talking with a support. Pt shared she is a verbal processor, so venting is highly beneficial for pt. Pt had many mental health wins from the weekend which included being vulnerable with her grandmother about pt's mental health and getting a job. Pt's stressor today is that there was conflict within her 's family over the weekend. Pt shared she had to set boundaries with her [id number] which was a healthy decision for pt per her report. Pt appeared to benefit from reflecting on her application of coping skills. Pt will continue IOP tx to promote mood stability, increase emotional regulation skills, and increase self-confidence. Narrative Note: []
--- NOTE | 2023-05-03 10:10 | BH.SGPN.GN ---
Behaviors/Verbalizations/Mental Status: []Client alert and oriented, casually dressed and groomed. Eye contact fair. Motor activity appropriate. Speech within normal limits. Affect constricted, mood anxious. Thoughts linear, logical, no signs of hallucinations or delusions. Client Response/Progress/Benefit: []Client was an active participant in group discussions and activity. Attentive during psychoeducation. Client engaged in activity in which group was able to make connections about how can be easier to find positives in others compared to self. Engaged in interactive discussion on the definition of perspective, how perspective is formed, and why perspective is important in treatment. Client shared her perspective is neutral towards treatment. Stated she is open minded and determined to get better. Will continue in IOP to improve distress tolerance, challenge distorted thoughts, and prevent decompensation.
--- NOTE | 2023-05-03 11:20 | BH.SGPN.GN ---
Behaviors/Verbalizations/Mental Status: []Pt alert and oriented, casually dressed and groomed. Eye contact good. Motor activity appropriate. Speech within normal limits. Affect congruent, mood euthymic. Thoughts linear, logical, no signs of hallucinations or delusions. Client Response/Progress/Benefit: []Pt was attentive and contributed to small group discussion. Pt reflected on the impact her physical health has on overall perspective, noting increased negativity when not feeling well. Pt worked with group to identify strategies to challenge one?s perspective which group identified: thought challenge, reaching out to supports, grounding skills, and accomplishment log. Connected with discussion on the importance of recognizing personal strengths in challenging perspective. Pt acknowledged a personal strength of open-mindedness and pt wants to work on challenging perspective by practicing dialectical thinking. Benefited from identifying personal strengths and strategies for challenging perspective. Pt to continue IOP tx to promote mood stability, encourage continued communication with supports, and increase use of healthy coping skills as pt prepares to return to work. Narrative Note: []
--- NOTE | 2023-05-05 09:05 | BH.SGPN.GN ---
Behaviors/Verbalizations/Mental Status: []Eye contact fair to good. Motor activity appropriate. Speech within normal limits. Affect congruent, mood anxious and dysthymic. Thoughts linear, logical, no signs of hallucinations or delusions. Reviewed client?s symptom tracker, no reported suicidal ideation, denies plan, or intent as of 05/05/2023. Client Response/Progress/Benefit: [] Client receptive of session, attentive and willing to process with group. Identified current mental health wins as changing out the cat litter first thing yesterday which allowed for pt to start the day feeling accomplished. Additional win noted as continuing with the IOP program as she has a history of starting and not completing things. Shared feeling better when she is here and has more energy as a result. Current stressor noted as struggling with ruminating thoughts related to a dream she had earlier in the week. Discussed trying to focus on other things and remind herself it was ?just a dream?. Client appeared to benefit from group support and encouragement. Recommended continued IOP tx to continue to improve consistency healthy coping skill application, thought challenging, as well as promote mood stability. Narrative Note: []
--- NOTE | 2023-05-05 10:15 | BH.SGPN.GN ---
Behaviors/Verbalizations/Mental Status: [] Client alert and oriented, casually dressed and groomed. Eye contact good. Motor activity appropriate. Speech within normal limits. Affect congruent, mood euthymic. Thoughts linear, logical, no signs of hallucinations or delusions. Client Response/Progress/Benefit: [] Client responded session by being attentive and taking notes. Client provided some input during discussion. Group identified the benefits of change which included: personal growth, positive perspective, increased confidence and better mental health. Worked with the group to identify barriers to change, which included: uncomfortable emotions such as anxiety, lack of awareness, low energy, support system, and negative thinking. Stated she will personalize situations that require change and believe something is wrong with me. Client attentive in activity where they identified and discussed the emotions related to change. Appear to benefit from increased awareness and understanding of emotions, benefits, and barriers related to change. Will continue IOP tx to improve daily functioning, increase healthy coping and prevent decompensation.
--- NOTE | 2023-05-05 11:15 | BH.SGPN.GN ---
Behaviors/Verbalizations/Mental Status: []Pt alert and oriented, casually dressed and groomed. Eye contact good. Motor activity appropriate. Speech within normal limits. Affect congruent, mood calm. Thoughts linear, logical, no signs of hallucinations or delusions Client Response/Progress/Benefit: []Pt responded well to session, attentive AEB participating in activity and actively engaging in group discussion. Group processed activity to relate the strategies used to overcome barriers in the activity to managing change in own life. Discussed and set SMART goal in group as it relates to change group members are wanting to make. Pt identified change they want as working out for 30 min on the elliptical once a day/five days a week. Identified being in the preparation stage but lack of motivation is keeping pt from following through consistently. Pt stated to get to the action stage consistently, she will need to use opposite action and use positive self-talk. Appeared to benefit from identifying a small goal to work towards. Pt will continue IOP tx to prevent decompensation, increase use of healthy coping skills, and improve daily functioning. Narrative Note: []
--- NOTE | 2023-05-05 11:26 | PCM.BH.PN_ITS ---
Progress Note Progress Note: History of Present Illness/Interim History: [] The patient is a 23-year-old female with a history of anxiety, depression, PTSD and cluster B traits who is seen in follow-up at the [facility] behavioral health IOP program. I last saw the patient 2 weeks ago and at that time no medication changes were made at she had just started the medicine a week before. Patient states that she is enjoying the IOP program and feels she is learning valuable skills to help her deal with her mental health. She states that she remains somewhat depressed but is less depressed than she was several weeks ago. Ongoing stressors include some family issues and also that she has applied for new job and thinks she may have obtained it after her interview. Her anxiety is improved over the last few weeks also. She still describes occasional feelings of worthlessness and hopelessness and continues to have about 3 crying spells per week. She sleeps about 5 to 6 hours a night if she has IOP in 10 to 12 hours if she does not. She is excited to go to work now on looking forward to her new job. She denies passive thoughts of , suicidal ideation, homicidal ideation, plan for suicide, hallucinations or delusions. She had a dream about her cutting herself and had some thoughts of self-harm after the dream but has not engaged in any actions of self-harm since last year. Current Psychiatric Medications: [] Prozac 20 mg p.o. daily (started three 1/2 weeks ago) Mental Status Examination: [] The patient is a 23-year-old obese, female who appears normal for stated age and is casually dressed and groomed with good hygiene. She is ambulatory with a normal gait and has no psychomotor agitation or retardation. Eye contact is good and speech is normal rate and rhythm and fluent with no pressure. Mood is mildly depressed. Affect is full and normal. Thought processes organized but occasionally the patient is overinclusive and almost somewhat tangential. Thought content: The patient is looking forward to starting her new job. There is no evidence of passive thoughts of , suicidal ideation, homicidal ideation, plan for suicide, hallucinations or delusions. Reality testing is intact. Judgment is intact. Insight is limited but some present. Impulsivity is moderate. Diagnoses: [] 1. Major depression, recurrent, severe without psychosis 2. Generalized anxiety disorder 3. PTSD 4. Cluster B traits 5. Rheumatoid arthritis, untreated with chronic pain 6. Work and primary support issues Plan: [] The patient will continue the IOP program at [facility] as the structure, support, education and group therapy will hopefully prevent worsening of the patient's symptoms. The risk, options, possible complications and side effects of the medications were discussed with the patient and she understands and accepts these. She felt safe during the interview and if it anytime she does not feel safe she will let us know or go to the emergency room. The patient's Prozac was increased to 40 mg p.o. daily and a prescription is sent in for this, #30 with 1 refill. She will continue to follow-up with her outpatient providers and I will see her in follow-up in several weeks.
--- NOTE | 2023-05-07 10:10 | BH.SGPN.GN ---
Behaviors/Verbalizations/Mental Status: [] Eye contact is good. Alert and oriented. Motor activity is appropriate. Appearance is casual. grooming is appropriate. Speech is Appropriate. Mood is euthymic. Affect is congruent. Thoughts are linear and logical. No evidence of psychosis or hallucinations. Client Response/Progress/Benefit: []Client an active participate AEB providing limited contributions, however did appear to listen attentively to others and taking notes throughout. The group identified the impact of emotions on communication such as change in tone, body language, shutting down, misperceiving the communication, and reassurance seeking. Client shared struggling with saying things she doesn't mean when experiencing increased anxiety and irritability. During group activity, client did well to challenge herself to participate and reflected on feeling anxious when trying to communicate and follow instructions given by fellow participants in order to accomplish the group goal. Client benefited from session by gaining an increased understanding on the importance of managing emotions to improve daily functioning. Client will continue IOP to further improve mood stability, improve use of skills for better symptom management, and prevent decompensation. Narrative Note: []
--- NOTE | 2023-05-07 11:10 | BH.SGPN.GN ---
Behaviors/Verbalizations/Mental Status: []Pt alert and oriented, casually dressed and groomed. Eye contact good. Motor activity appropriate. Speech within normal limits. Affect congruent, mood euthymic. Thoughts linear, logical, no signs of hallucinations or delusions. Client Response/Progress/Benefit: [] Pt engaged in session AEB Pt listening attentively to peers and providing input. Attentive during psychoeducation on 4 zones of regulation. Pt able to identify feelings and behaviors for each zone. Pt identified coping skills one can use to support self in each zone. Pt reports belief they are in the ?green/yellow? zones today and pt wants to focus on challenging thoughts and keeping up with daily tasks today to help pt in this zone. Benefited from increased education on zones of regulation or stages of alertness for emotions and healthy coping skills to use for each zone. Will continue IOP tx to promote the use of healthy coping skills, improve motivation, and increase mood stability. Narrative Note: []
--- NOTE | 2023-05-07 14:26 | BH.MDN ---
Multi-Disciplinary Note Note 45-min Individual: Time Started:: 09:10 Date: 05/07/23 Purpose of session/treatment goals addressed:: To work on goal #1 of pt's tx plan. Eye Contact:: Good Motor Activity:: Appropriate Appearance:: Casual Speech:: Tangential and Rapid Mood:: Euthymic and Anxious Affect:: Full Thoughts:: Circular and No evidence of hallucinations/delusions noted Staff Interventions:: thought challenging, psychoeducation on: (maintenance cycles), CBT techniques, strengths perspective, goal setting and other (gave pt homework to read about attachment styles and identify what style pt is.) Client Response:: Pt responded well to session, open to meeting with therapist. Pt shared she completed her homework from last session which was to identify maintenance cycles pt notices with certain emotions. Pt completed maintenance cycles for anger, guilt, and sadness. Pt shared she noticed that if she does not break a maintenance cycle it feeds into another one. For example, pt shared anger can turn into guilt and sadness. Discussed what pt can do to break maintenance cycles which included changing behaviors and/or challenging thoughts. Pt looked back on experiences when pt was in a sad/depressed maintenance cycle and what pt could do differently. Pt appeared to benefit from learning about behavioral activation and opposite action. Pt also gained awareness of how her negative thinking patterns maintain maintenance cycles and reinforce insecurity. Pt receptive to learning about attachment styles and how this can impact thinking patterns and behaviors. Risks/Concerns:: Pt denies any suicidal ideations, plan, or intent as of 05/07/23. Progress Toward Goals/Plan:: Pt is responding well to tx AEB pt's consistent attendance and overall engagement in group and individual sessions. Pt reports some progress in increased self-awareness and reduction in symptoms. Pt continues to struggle with negative thinking patterns, racing thoughts, lack of motivation, increased fatigue, and ruminations. Pt also reports a depressed mood and lack of energy. Pt will continue IOP tx to promote mood stability, reduce negative thinking patterns, and improve daily functioning. Time Stopped:: 09:55
== END 2023-05-07 23:59 ==
LOC: BHIOP 08:00
PROVIDERS: PCP Nurse Practitioner Adult Health; Referring Provider Psychiatry & Neurology Psychiatry; Visit Provider Psychiatry & Neurology Psychiatry
DX: F33.2 Major depressive disorder, recurrent severe without psychotic features (principal); F43.10 Post-traumatic stress disorder, unspecified; F41.1 Generalized anxiety disorder; M06.9 Rheumatoid arthritis, unspecified; G89.4 Chronic pain syndrome
CPT/HCPCS: S9480; 90834; 90853

== ENCOUNTER 2023-05-10 07:17 | Outpatient (RCR) | payer OTHER, SELFPAY ==
[2023-05-08 01:42] VITALS: BP 151/89; PULSE 95
--- NOTE | 2023-05-10 09:00 | BH.SGPN.GN ---
Behaviors/Verbalizations/Mental Status: [] Eye contact is good. Motor activity is appropriate. Appearance is disheveled. Speech is Appropriate. Mood is depressed. Affect is congruent. Thoughts are linear and logical. No evidence of psychosis. Reviewed daily check in sheet and no reports of suicidal ideations or intent. Client Response/Progress/Benefit: [] Pt participated at times during the group discussion. Attentive. Daily symptom tracker notes 3/5 for depression and 2/5 for anxiety/irritability. Emotion for today is crappy. No specific trigger or stressor to her current emotion. Shared that she utilized skills over the weekend and didn't allow past experiences or resentments impact her mood. Elaborated more on this. She talked at length regarding psychosocial stressors and how they impact her thoughts, emotions, and actions, however by using certain skills (reframing, challenging, etc) the impact these stressors have is decreasing. Progress noted per pt report as she is effectively utilizing skills to better manage her thoughts, emotions, and actions. Still continues to report significant anxiety, irritability,and depression as well as intrusive thoughts, however is beginning to incorporate healthy coping strategies. Beneifted from group support, encouragement, and feedback. Will continue in IOP to prevent decompensation, stabilize mood, and improve functioning. Narrative Note: []
--- NOTE | 2023-05-10 10:10 | BH.SGPN.GN ---
ions/Mental Status: [] Eye contact is fair. Motor activity is appropriate. Appearance is casual. Speech is Appropriate. Mood is dysthymic. Affect is constricted. Thoughts are linear and logical. No evidence of psychosis. Client Response/Progress/Benefit: [] Pt did not participate in group discussions however was attentive. Participated in and was engaged during experiential activity. Attentive during interactive discussion on what failure means to the group in which peers identified that failure is ... not meeting expectations, not having a desired outcome, and not succeeding in a task. Group was able to identify how fear of failure can lead to inaction, complacency, pushing people away, poor self-care, and self-sabotage. Attentive during interactive discussion on the role that FOF plays in mental wellness, depression, anxiety, and growth. Able to connect the experiential activity to FOF. Benefited from increased awareness of how the role that FOF plays in mental health and decision-making. Will continue in IOP to challenge distorted thoughts, increase confidence, improve boundary setting and prevent decompensation.
--- NOTE | 2023-05-10 11:15 | BH.SGPN.GN ---
Behaviors/Verbalizations/Mental Status: []Pt alert and oriented, casually dressed and groomed. Eye contact good. Motor activity appropriate. Speech within normal limits. Affect congruent, mood euthymic. Thoughts linear, logical, no signs of hallucinations or delusions. Client Response/Progress/Benefit: [] Pt responded well to session, engaged in the experiential activity and attentive throughout group processing. Pt reported fear of failure has kept Pt from setting goals, making progress, and reaching out for help. Pt completed fear of failure worksheet and was able to identify thoughts and behaviors that reinforce personal fear of failure including comparing herself to others, all or nothing thinking, and complacency. ?Pt participated in group discussion regarding strategies to overcome fear of failure. Identified wanting to work on dialectical thinking. Appeared to benefit from increased knowledge of strategies to combat fear of failure and gaining self-awareness. Pt will continue IOP tx to increase emotional regulation skills, improve mood stability, and increase motivation. ? Narrative Note: []
--- NOTE | 2023-05-10 13:36 | BH.MTP_ITS ---
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 Pt's anxiety has decreased by 25% since admission and her use of alcohol has decreased by 50%. Pt contributes well during individual sessions and she is highly engaged during group sessions. Pt applies coping skills outside of IOP and reports overall mood is improving. Pt is consistent with her goals and reports benefitting from increasing self- awareness. Status of Current Problems and Symptoms: Pt's symptoms from admission are ongoing, but pt is making progress towards resolving them. Pt continues to endorse a depressed mood with anhedonia, thoughts of , guilt, worthlessn ess, lack of motivation, and negative thinking patterns. Pt is negative towards herself and she is learning about her core beliefs. Pt's biggest stressors include her mental health, work, and family stress. Pt is also learning about how her anxious attachment style impacts her mental health and relationships. Progress Problem #1: Problem Name:: Depression, anhedonia, worthlessness, hopelessness, and negative thinking. Status of Goals:: Objective 1- in progress. Pt's DSM-5 scores for de pression have not decreased since admission, but pt has prevented further decompensation. Pt reports utilizing healthy coping skills outside of IOP like opposite action. Objective 2- in progress. Pt can identify negative self-talk statements and core beliefs. Pt is working on developing new, more balanced core beliefs Team Recommendations:: Treatment tx encourages pt to continue working on this tx goal as pt has made progress, but she continues to report severe depressive symptoms. Pt also can benefit from challenging distortions and giving herself credit more consistently. Pt is also working on establishing a routine at home and setting realistic goals. Problem #2: Problem Name:: Anxiety, rumination, avoidance Status of Goals:: Objective 1-complete with ongoing work encouraged. Pt?s DSM-5 scores for anxiety have decreased by 25% since admission. Pt reports wo rking on grounding skills and starting to set some boundaries has been helpful. Pt is working on identifying and verbalizing healthy boundaries without feeling inappropriate guilt. Objective 2- in progress. Pt is improving with her ability to catch and combat distortions that reinforce ruminations. Team Recommendations:: Treatment team encourages pt to continue working on incorporating calming skills as well as communicating needs and boundaries assertively to reduce anxiety and triggers. Pt is also encouraged to identify boundaries and coping skills for work and family stressors.
--- NOTE | 2023-05-13 09:00 | BH.SGPN.GN ---
Behaviors/Verbalizations/Mental Status: []Pt alert and oriented, neatly dressed and groomed. Eye contact good. Motor activity appropriate. Speech within normal limits. Affect congruent, mood irritable. Thoughts linear, logical, no signs of hallucinations or delusions. Reviewed pt?s symptom tracker, no risk for suicidal ideation, plan, or intent as 05/13/23 Client Response/Progress/Benefit: []Pt responded well to session, offering supportive statements and engaged. Pt reports feeling irritable this morning and shared that she felt this way yesterday as well. Pt stated she went to orientation for her new job and it went well, so pt plans to start work tomorrow. Pt shared she and her talked about the changes that will occur now that pt is going back to work which sparked some tension. Pt identified that her communication is not always assertive with her which can cause conflict. Pt's mental health wins include going back to work which will help pt get out of the house and getting her shower fixed at home. Pt appeared to benefit from reflecting on mental health wins. Pt will continue IOP tx to promote mood stability, reduce negative thinking patterns, and increase emotional regulation skills. Narrative Note: []
--- NOTE | 2023-05-13 10:15 | BH.SGPN.GN ---
Behaviors/Verbalizations/Mental Status: []Client alert and oriented, casual dress, hygiene tended to. Eye contact good. Motor activity appropriate. Speech within normal limits. Affect constricted, mood dysthymic. Thoughts linear, logical, no signs of hallucinations or delusions. Client Response/Progress/Benefit: []Client responded well to session, attentive to discussions, taking notes. Did not provide input throughout group discussions. Client worked cooperatively with the group to identify factors that contributed to how we define ourselves which included: upbringing, societal expectations, labels, failures, trauma, shame/guilt, others opinions, and diagnosis. Attentive during group discussion about social and perceived stigma. Client seemed to benefit from increased awareness of how mental health stigma can impact progress and self-worth. Client to continue IOP tx to challenge distortions, build confidence, and prevent decompensation.
--- NOTE | 2023-05-13 15:14 | BH.MDN_ITS ---
Multi-Disciplinary Note Note 45-min Individual: Time Started:: 11:15 Date: 05/13/23 Eye Contact:: Good Motor Activity:: Appropriate Appearance:: Casual Speech:: Appropriate Mood:: Depressed Affect:: Congruent Thoughts:: Linear, Logical and No evidence of hallucinations/delusions noted Staff Interventions:: thought challenging, psychoeducation on: (attachment styles), CBT techniques, strengths perspective, goal setting, taught coping skills and other (reviewed homework from last session and processed current stressors.) Client Response:: Pt responded well to session, open to meeting with therapist. Pt shared she has been feeling weird lately. Pt explained that she has been feeling unsettled and insecure within her relationship ever since I misinterpreted what my said a few weeks ago. Pt read the chapters provided one attachment styles and pt shared she connects with the preoccupied style. Pt stated she is constantly looking for reassurance and often feels like people will leave her once they get to know the real her. Pt shared this causes constant overthinking and anxiety in her relationship. Pt shared part of the reason she is working again is because she wants to have my own money in case he decides this won't work. Pt shared she is noticing she is more irritable and frustrated with her as well. Pt reflected on how in the past if she felt insecure or anxious, pt would leave her partners before they left her. Pt made the parallel that this also has happened in work situations. Pt called herself a quitter and shared she does not like this about herself. Receptive to challenging this perspective and able to see how there can be a becerril where it is okay to quit and it can also be harmful at times. Pt receptive to working on identifying patterns associated with her preoccupied attachment for homework. Pt also encouraged to practice becerril or dialectical thinking for homework. Risks/Concerns:: Pt denies any active suicidal ideations, plan, or intent. No HI reported. Progress Toward Goals/Plan:: Pt reports progress in increasing self- awareness of her triggers, emotions, and thinking patterns. Pt plans to return to work tomorrow which is a stressor and positive for pt. Pt continues to endorse a depressed mood, increase sleeping and fatigue, lack of motivation, ruminations, anxiety, irritability, and worthlessness. Pt will continue IOP tx to help increase work-related functioning, improve mood stability, and break unhelpful maintenance cycles. Time Stopped:: 12:00
--- NOTE | 2023-05-14 09:00 | BH.SGPN.GN ---
Behaviors/Verbalizations/Mental Status: [] Eye contact is good. Motor activity is appropriate. Appearance is casual. Speech is Appropriate. Mood is anxious. Affect is congruent. Thoughts are linear and logical. No evidence of psychosis. Reviewed daily check in sheet and no reports of suicidal ideations or intent. Client Response/Progress/Benefit: [] Pt participated at times during the group discussion. Attentive. Daily symptom tracker notes 3/5 for anxiety and 2/5 for depressed mood. Mental health win was I socialized yesterday. Shared how this was beneficial to her mental health. Decreased isolation. Another win is that she starts a new job today. She discussed her anxiety and her concerns as she has not been able to maintain consistent employment for more than 6 months. Numerous struggles at the workplace related to her mental health which she shared with the group. Significant guilt and regret over how she left previous jobs. Group was supportive, empathized, and provided encouragement/feedback which was beneficial. Progress noted per pt report with increased socialization and starting a new job. Will continue in IOP to prevent decompensation, stabilize mood, and increase functioning. Narrative Note: []
--- NOTE | 2023-05-14 10:10 | BH.SGPN.GN ---
Behaviors/Verbalizations/Mental Status: []Client alert and oriented, casually dressed and groomed. Eye contact good. Motor activity appropriate. Speech within normal limits. Affect congruent, mood anxious, euthymic. Thoughts linear, logical, no signs of hallucinations or delusions. Client Response/Progress/Benefit: []Client receptive to session AEB providing input throughout, listening attentively to others, and taking notes. Attentive throughout psychoeducation on the cognitive triangle and maintenance cycles. Worked on identifying own vicious cycle. Engaged in group discussion reviewing the impact of daily activities and behaviors in either reinforcing unhealthy maintenance cycles and depression or assisting in reducing symptoms (?down? vs ?up? activities). Client identified common ?down? activities they engage in as: doom scrolling, sad music, sleeping extra, using [facility] as a doctor, and isolation.. Common ?Up? activities client identified included: swimming, dancing, watching funny show, and jerry. Appeared to benefit from increased awareness of current behaviors and impact these have on mental health. Pt to continue IOP to challenge negative thinking, increase healthy coping, and prevent decompensation.
--- NOTE | 2023-05-14 11:15 | BH.SGPN.GN ---
Behaviors/Verbalizations/Mental Status: []Pt alert and oriented, neatly dressed and groomed. Eye contact good. Motor activity appropriate. Speech within normal limits. Affect congruent, mood anxious. Thoughts linear, logical, no signs of hallucinations or delusions. Client Response/Progress/Benefit: []Pt responded well to session, attentive and engaged in activity. Group shared having patience and being willing to re-evaluate helped the group be success. Group discussed values and the benefits that knowing one's values can have on one's mental health. These included: increasing motivation, resolved cognitive dissonance, and less stress. Pt explored own values and identified employment/career and mental health as their top two values. Pt set a goal to speak up when she is struggling at work instead of being passive to live according to values. Pt appeared to benefit from exploring values and creating a weekly goal. Pt will continue IOP tx to prevent decompensation, improve daily functioning, and increase self-compassion. Narrative Note: []
--- NOTE | 2023-05-17 09:00 | BH.SGPN.GN ---
Behaviors/Verbalizations/Mental Status: []Pt alert and oriented, neatly dressed and groomed. Eye contact good. Motor activity appropriate. Speech tangential. Affect congruent, mood nervous. Thoughts linear, logical, no signs of hallucinations or delusions. Reviewed pt?s symptom tracker, no risk for suicidal ideation, plan, or intent as 05/17/23 Client Response/Progress/Benefit: []Pt responded well to session, attentive and engaged. Pt reports feeling restless and chatty this morning as pt feels she has nervous energy about going to work. Pt is returning to full-time work this week after a year of not working which is a positive and a stressor. Pt stated she is worried that physically her body will not react well to working which will trigger negative thinking and depression. Pt stated she is trying to be more proactive this time with work and wants to prioritize self-care. Pt has worked on this by communicating with her about her needs and discussing how they can balance household tasks. Pt appeared to benefit from reflecting on application of healthy coping skills. Pt will continue IOP tx to promote mood stability, increase self-esteem, and combat distorted thinking patterns. Narrative Note: []
--- NOTE | 2023-05-17 10:15 | BH.SGPN.GN ---
Behaviors/Verbalizations/Mental Status: [] Eye contact is good. Motor activity is appropriate. Appearance is casual. Speech is Appropriate. Mood is anxious. Affect is congruent. Thoughts are linear and logical. No evidence of psychosis. Client Response/Progress/Benefit: [] Pt was an active participant in group discussion. Attentive during psychoeducation. Participated during interactive discussion on types of support. Group identified several forms of support which included; friends, family, therapy, professionals, support groups, co-workers, social media, spirituality, medications, local agencies, etc. Pt Participated as group discussed the the importance of support which they identified leads to; accountability, can motivate, decreased loneliness, connection with others, improved relationships, increased self-confidence, can lessen one's stress and responsibilities, and is fun/ distracting. Patient identified the obstacles/barriers to seeking support and utilizing the support they currently have in place which included lack of motivation, putting on a mask, and don't like to worry of stress others out Benefited from increased awareness of healthy supports and the importance of balanced support. Will continue in IOP to prevent decompensation, stabilize mood, and improve functioning. Narrative Note: []
--- NOTE | 2023-05-17 11:15 | BH.SGPN.GN ---
Behaviors/Verbalizations/Mental Status: []Client alert and oriented, casually dressed and groomed. Eye contact good. Motor activity appropriate. Speech within normal limits. Affect congruent, mood anxious and euthymic. Thoughts linear, logical, no signs of hallucinations or delusions. Client Response/Progress/Benefit: [] Client was an active participant throughout AEB contributing to group discussion, participating in the activity, and taking notes. Client provided input during discussion on the types of support our supports can provide (social, emotional, tangible, and informational). Able to identify the types of support pt?s own support system provides for them. Client reported gaining awareness that they could benefit from more emotional specific support. Shared this will help to provide her with a greater sense of validation and help when she is struggling. Client identified steps to achieve this as continue to engage in IOP tx, ask for more hands on assistance at home, and challenge herself to be more open/vulnerable with others. Client seemed to benefit from identifying support areas client could benefit from improving. Recommended to continue IOP tx to increase healthy coping repertoire, promote mood stability, and improve overall functioning. Narrative Note: []
--- NOTE | 2023-05-19 09:00 | BH.SGPN.GN ---
Behaviors/Verbalizations/Mental Status: []Pt alert and oriented, casually dressed and groomed. Eye contact fair to good. Motor activity appropriate, at times restless. Speech within normal limits. Affect congruent, mood anxious and euthymic. Thoughts linear, logical, no signs of hallucinations or delusions. Reviewed pt?s symptom tracker, risk for suicidal ideation reported as 1/ which is within pt baseline, denies plan, or intent as 05/19/23 Client Response/Progress/Benefit: []Pt responded well to session, open to contributing with group and engaged. Pt reports feeling conflicting emotions this morning, explaining that she has been enjoying her new job but part of her still struggles with the desire to quit when feeling bored or restless at work. Indicated that identifying the benefits of employment has aided in not impulsively quitting, which she shared is a win. Additional win noted as being able to laugh at herself when making a mistake at work rather than becoming increasingly stressed by it. Current stressor noted as struggling with pain from standing for long periods of time at work. Shared trying to focus on accepting this and focusing on the task at hand rather than frustration about it. Pt appeared to benefit from reflecting on mental health wins. Pt will continue IOP tx to promote mood stability, reduce negative thinking patterns, and increase use of behavior activation skills. Narrative Note: []
--- NOTE | 2023-05-19 14:20 | BH.MDN_ITS ---
Multi-Disciplinary Note Note 45-min Individual: Time Started:: 11:15 Date: 05/19/23 Purpose of session/treatment goals addressed:: To work on goal #1 of pt's tx plan. Eye Contact:: Good Motor Activity:: Restless Appearance:: Casual Speech:: Tangential Mood:: Euthymic and Anxious Affect:: Congruent Thoughts:: Linear, Logical and No evidence of hallucinations/delusions noted Staff Interventions:: thought challenging, CBT techniques, mindfulness skills, strengths perspective, goal setting and taught coping skills Client Response:: Pt responded well to session, open to meeting with therapist. Pt shared her first days of work have gone well and pt feels her co- workers are kind. Pt is anxious that she will get offered a promotion quickly and pt does not want this. Discussed that pt is allowed to advocate for herself and turned down a promotion so that she has less responsibility for a while. Pt stated she struggles with setting boundaries at work, but ultimately taking on a bigger role would lead to pt becoming more burnout per her report. Pt connected that in general she struggles with setting boundaries and expressing her needs. Pt often describes herself as too much and being fearful of being too much for others to handle. Discussed core beliefs and how pt can begin to work on forming new core beliefs. Discussed how core beliefs are reinforced through thoughts and behaviors. Practiced thought challenging to help pt see the benefits of setting boundaries and to combat the belief of being too much. Pt encouraged to practice self-care today as well as practice opposite action. Risks/Concerns:: Pt denies any active SI, plan, or intent as of 05/19/23. Progress Toward Goals/Plan:: Pt continues to make progress towards tx goals AEB pt's self-report of utilizing health coping skills outside of IOP and report of benefitting from IOP. Pt continues to struggle with negative thinking patterns, worthlessness, lack of motivation, and a depressed mood. PT continues to be receptive to challenging negative thoughts and practicing opposite action. Pt started at work this week and pt can benefit from ongoing IOP tx to help pt transition back to full-time employment. Pt will also continue IOP tx to promote mood stability, increase self-confidence, and improve emotional regulation skills. Time Stopped:: 12:00
--- NOTE | 2023-05-20 10:10 | BH.SGPN.GN ---
Behaviors/Verbalizations/Mental Status: [] Eye contact is good. Motor activity is appropriate. Appearance is casual. Speech is Appropriate. Mood is euthymic. Affect is congruent. Thoughts are linear and logical. No evidence of psychosis. Client Response/Progress/Benefit: []Pt engaged participant AEB listening to others, engaging in activity, and providing feedback at times. Attentive during psychoeducation and provided insight into obstacles in the way of mental wellness. Pt shared with group current mental health reality and desired mental health reality. Stated coming to therapy as one step she is currently making to get closer to desired reality. Identified barriers to desired reality include: negative perspective, high expectations of self, and lack of self-care. Benefited from taking look at current mental health state and obstacles for progress. Pt to continue IOP to improve emotion regulation, challenge distorted thoughts, and prevent decompensation.
--- NOTE | 2023-05-21 09:00 | BH.SGPN.GN ---
Behaviors/Verbalizations/Mental Status: [] Pt alert and oriented, casually dressed and groomed. Eye contact good. Motor activity appropriate. Speech within normal limits. Affect congruent, mood depressed Thoughts linear, logical, no signs of hallucinations or delusions. Reviewed pt?s symptom tracker, no risk for suicidal ideation, plan, or intent 05/21/23 Client Response/Progress/Benefit: []Pt responded well to session, attentive and contributing. Pt reports feeling conflicted this morning. 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 Pt had shared previously that she does not want any extra responsibilities right now, but pt did not set a boundary with her boss. Pt stated it was positive in the sense that it reminded pt of her hard work ethic. Pt's stressor today is that she is having thoughts of why am I even here and struggling more with her depression. Pt shared she will play her video game [employer] which will hopefully help pt. Pt appeared to benefit from coming to IOP tx instead of isolating. Pt will continue IOP tx to prevent decompensation, increase use of healthy coping skills, and reduce negative thinking patterns. Narrative Note: []
--- NOTE | 2023-05-21 10:10 | BH.SGPN.GN ---
Behaviors/Verbalizations/Mental Status: []Pt alert and oriented, casually dressed and groomed. Eye contact fair. Motor activity appropriate. Speech within normal limits. Affect constricted, mood dysthymic. Thoughts linear, logical, no signs of hallucinations or delusions. Client Response/Progress/Benefit: []Pt receptive of session, actively engaged throughout AEB taking notes and listening to discussion. Appeared to connect with group topic of cognitive distortions and the impact of thought patterns on mental health, coping behaviors, and relationships. Pt reports connecting with distortions of magnification and minimization. Pt able to connect negative impact these distortions have on her functioning and mental health. Pt appeared to benefit from gaining insight on distorted thinking patterns and how this impacts overall mental health. Will continue IOP tx to increase consistent use of healthy coping, challenge negative thinking, and prevent decompensation.
--- NOTE | 2023-05-21 12:18 | BH.MDN_ITS ---
Multi-Disciplinary Note Note 45-min Individual: Time Started:: 11:15 Date: 05/21/23 Purpose of session/treatment goals addressed:: To process current stressors and triggers. Another goal was to work on goal #1 objective #2 of pt's tx plan. Eye Contact:: Fair Motor Activity:: Appropriate Appearance:: Casual Speech:: Appropriate Mood:: Depressed Affect:: Constricted (tearful) Thoughts:: Linear, Other (negative thoughts of self.) and No evidence of hallucinations/delusions noted Staff Interventions:: thought challenging, CBT techniques, strengths perspective and other (pt given homework to identify what she contributes each day that is not based on productivity. ) Client Response:: Pt responded well to session, open to meeting with therapist. Pt and therapist met earlier this week, but pt shared I wanted to try the vulnerability thing and talk about what's wrong. Pt acknowledged this progress as pt would normally isolate when she feels this way because pt does not want to be too much or a burden to others. Pt is gaining more insight to her negative core beliefs and one of them is that she is too much for people to handle. Pt also believes that her worth is tied to how productive she is and the tangible contributions she provides. Pt receptive to thought challenging using self-compassion and dialectical thinking. Pt receptive to homework which is identifying three things she contributes each day that is not based on pro ductivity. Pt also gained insight to why she believes worth is tied to productivity and why she feels she is too much. Pt connected these beliefs to being in unhealthy relationships and not having emotional support from her father growing up. Pt willing to work on reframing thoughts and beginning to from new core beliefs. Risks/Concerns:: Pt reports increased thoughts of why am I here but denies any suicidal ideations. Pt denies any HI. Progress Toward Goals/Plan:: Pt reports increased depressive symptoms tod ay due to increased physical pain and stress. Pt continues to work on her tx goals and pt is consistent with homework. Pt also continues to be engaged in both individual and group sessions. Pt currently endorses a depressed mood, rumination, negative thoughts of self, and worthlessness. 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 Pt will continue IOP tx to prevent further decompensation, improve self-confidence, and increase mood stability. Time Stopped:: 11:55
--- NOTE | 2023-05-24 09:00 | BH.SGPN.GN ---
Behaviors/Verbalizations/Mental Status: [] Eye contact is good. Motor activity is appropriate. Appearance is casual. Speech is Appropriate. Mood is euthymic. Affect is full. Thoughts are linear and logical. No evidence of psychosis. Reviewed daily check in sheet and no reports of suicidal ideations or intent. Client Response/Progress/Benefit: [] Pt participated at times during the group discussions. Attentive. Daily symptom tracker notes 11/12 for anxiety and depression. Emotion for today is conflicted. Reports that she has struggled with being vulnerable her whole life and has found that this is an obstacle to her mental health progress and growth. According to pt she was struggling on 05/21/23 while in IOP and was able to be vulnerable with her therapist. Pt reports perception that vulnerability is similar to weakness. Group provided insight and feedback to challenge this perception and highlight the mental health benefits of being vulnerable. Insight that by being honest and vulnerable she was able to identify addtional areas and goals to focus on to improve her mental health which was beneficial. Will continue in IOP to prevent decompensation Narrative Note: []
--- NOTE | 2023-05-24 10:15 | BH.SGPN.GN ---
Behaviors/Verbalizations/Mental Status: []Pt alert and oriented, casually dressed and groomed. Eye contact good. Motor activity appropriate. Speech within normal limits. Affect congruent, mood anxious and euthymic. Thoughts linear, logical, no signs of hallucinations or delusions. Client Response/Progress/Benefit: []Pt responded well to session, attentive and providing to discussion. Pt connected with the quote and discussion reviewing the functions of various emotions. Attentive throughout psychoeducation on the functional role and benefits of guilt, as well as differences between appropriate and inappropriate guilt. Group discussed the harmful impacts of unmanaged guilt which included poor boundaries, feeling inadequate, and creating an unhealthy maintenance cycle. Pt participated in group activity highlighting the impacts of inappropriate guilt in team collaboration or reaching a goal. Pt then completed a self-reflection activity in which they identified their own experiences with inappropriate guilt and impacts on pt?s mental health. Shared struggling with inappropriate guilt when she?s not happy and other?s expect he to be or when not socializing with others in new situations. Pt appeared to benefit from learning about the different types of guilt and how unmanaged guilt can impact mental health. Pt will continue IOP tx to promote mood stability, maintain gains, and continue to improve daily functioning. Narrative Note: []
--- NOTE | 2023-05-24 11:15 | BH.SGPN.GN ---
Behaviors/Verbalizations/Mental Status: []Pt alert and oriented, neatly dressed and groomed. Eye contact good. Motor activity appropriate. Speech within normal limits. Affect congruent, mood calm. Thoughts linear, logical, no signs of hallucinations or delusions. Client Response/Progress/Benefit: [] Pt engaged participant AEB listening attentively to others and providing input throughout group. During challenge activity pt worked cooperatively with small group. Pt made connection that it takes patience and problem solving to work through appropriate and inappropriate guilt. Pt worked with their small group to identify strategies to manage unhealthy guilt. Pt stated she often feels inappropriate guilt when she does not feel happy. Pt selected wanting to work on the strategy of sitting with the uncomfortable and practicing self-compassion to challenge inappropriate guilt. Pt seemed to benefit from learning about strategies to manage appropriate and inappropriate guilt. Pt to continue IOP to increase self-compassion, combat distortions, and improve work-related functioning. Narrative Note: []
--- NOTE | 2023-05-26 09:00 | BH.SGPN.GN ---
Behaviors/Verbalizations/Mental Status: [] Eye contact is good. Motor activity is appropriate. Appearance is casual. Speech is Appropriate. Mood is dysthymic. Affect is congruent. Thoughts are linear and logical. No evidence of psychosis. Reviewed daily check in sheet and reports a 1/5, with 5 being severe, for suicidal ideation, and a 0/5 for suicidal intention. This is below pt's baseline. Does not present as imminent risk for harm to self or others. Client Response/Progress/Benefit: [] Pt participated when prompted. Attentive. Daily symptom tracker notes 3/5 for depression and 0/5 for anxiety. Client reported mental health positive as stopping herself from apologizing for setting a boundary with her about his brother being over at their place when no one is home. Client stated she usually feels guilty if she sets a boundary even when she knows the boundary is appropriate. Client reported additional positive as getting a text from her mom this morning in which her mom apologized for not getting client help when she was in her adolescence and for them spending energy on helping her sibling. Identified stressor as trying to set boundaries about her [id number]. Seemed to benefit from support from peers. Will continue in IOP to continue use of healthy coping skills, build confidence, and prevent decompensation.
--- NOTE | 2023-05-26 11:15 | BH.SGPN.GN ---
Behaviors/Verbalizations/Mental Status: []Client alert and oriented, casually dressed and groomed. Eye contact good. Motor activity appropriate. Speech within normal limits. Affect congruent, mood anxious and euthymic. Thoughts linear, logical, no signs of hallucinations or delusions. Client Response/Progress/Benefit: []Client was an active participant throughout AEB contributing to group discussion and taking notes. Client provided input during small group discussion on strategies to combat each factor maintaining adverse nutritional cycles. Worked with group to identify ways to foster more mindful nutritional choices. Each group participant identified one small step they could take today to begin establishing mental wellness promoting nutritional choices. Client shared plans to?refrain from buying alcohol after work to reduce likelihood pt drinks as well as prevent from reinforcing depression due to effects of alcohol on maintaining depressive sx.?Appeared to benefit from gaining insight into mental wellness centered nutrition and identifying personal steps client can take to support own nutritional psychology. Recommended continued IOP tx to further increase healthy coping repertoire, promote mood stability, and improve overall functioning.? Narrative Note: []
--- NOTE | 2023-05-27 10:10 | BH.SGPN.GN ---
Behaviors/Verbalizations/Mental Status: [] Eye contact is good. Motor activity is appropriate. Appearance is casual. Speech is Appropriate. Mood is anxious. Affect is congruent. Thoughts are linear and logical. No evidence of psychosis. Client Response/Progress/Benefit: [] Pt was an active participant in group discussions and activities. Attentive during psychoeducation. Engaged during activity in which she identified which type of foods (i.e. carbs, sugar, salt, fast food, caffeine, etc) she seeks out when sad, tired, angry, rushed, anxious, etc. Pt was able to identify an unhealthy food cycle which included get home from work off a long day --> drink alcohol to relax ---> poor and restless sleep and poor decisions. Pt was able to identify the impact that certain foods have on her mental health which was beneficial. Will continue in IOP to prevent decompensation, increase functioning, and increased healthy coping skills Narrative Note: []
--- NOTE | 2023-05-28 10:15 | BH.SGPN.GN ---
Behaviors/Verbalizations/Mental Status: []Pt alert and oriented, casually dressed and groomed. Eye contact good. Motor activity appropriate. Speech within normal limits. Affect congruent, mood calm. Thoughts linear, logical, no signs of hallucinations or delusions. Client Response/Progress/Benefit: []Pt was an active participant during small group discussions. Attentive during psychoeducation on the six types of boundaries. Pt along with peers contributed to interactive discussion on defining what a boundary is and group identified challenges to setting boundaries. Pt discussed personal barriers of guilt and fear of ?not being a team player?. Pt?s group also identified the benefits of boundary setting which included ?preventing resentment and being taken advantage of.? Pt contributed during his small group discussion. benefited from increased awareness and insight on the importance/benefit to setting health boundaries. Will continue IOP tx to combat distorted thinking patterns, improve self-confidence, and improve mood stability. Narrative Note: []
--- NOTE | 2023-05-28 10:23 | BH.MDN_ITS ---
Multi-Disciplinary Note Note 45-min Individual: Time Started:: 09:20 Date: 05/28/23 Purpose of session/treatment goals addressed:: To work on goal #1 of pt's tx plan. Focused on core beliefs and thought challenging. Eye Contact:: Good Motor Activity:: Appropriate Appearance:: Casual Speech:: Appropriate Mood:: Depressed Affect:: Congruent Thoughts:: Linear, Logical and No evidence of hallucinations/delusions noted Staff Interventions:: thought challenging, psychoeducation on: (hodges mind), CBT techniques, strengths perspective, goal setting, taught coping skills and other (homework to continue identifying things pt contributes that are not tied to being productive.) Client Response:: Pt responded well to session, open to meeting with therapist. Pt reports completing the homework from last session which was to identify things she contributes without being productive. Pt shared this was way harder than I thought it would be. Pt struggled to come up with three a day, but tried her best and asked for support from her . Pt stated when she asked her he named things he liked about pt and pt felt like those shouldn't count. Pt is willing to continue working on this for homework again. Pt also has been trying to come up with strategies to help pt with her physical pain both at home and at work. Discussed what pt can do to advocate for herself and how to challenge her anxious thought patterns. Pt plans to talk to her boss and ask for a stool and get a wheelchair for home. Pt receptive to learning about hodges mind to help pt combat inappropriate guilt and increase self- compassion. Pt shared the guilt group was very eye-opening and helped pt be more aware of how often she apologizes for things that are not her fault. Pt has been working on not apologizing and she wants to continue doing this. Risks/Concerns:: Pt scored a 2/5 for thoughts of suicide today on the daily symptom tracker. Pt denies the thoughts are suicidal, pt shared they are thoughts of why am I here. Pt denies any plan or intent. Future oriented and multiple protective factor. Progress Toward Goals/Plan:: Pt is making progress towards her tx goals AE B pt's self-report of increase self-awareness, actively challenging her thoughts, and consistently completing homework and engaging in session. Pt is showing great strides in self-advocacy, opposite action, and practicing self- care. Pt continues to struggle with negative view of self, excessive guilt, rumination, physical pain, and a depressed mood. Pt will continue IOP tx to promote mood stability, reinforce healthy coping skills, and increase self- confidence. Time Stopped:: 10:05
--- NOTE | 2023-05-28 11:15 | BH.SGPN.GN ---
Behaviors/Verbalizations/Mental Status: []Pt alert and oriented, casually dressed and groomed. Eye contact good. Motor activity appropriate. Speech within normal limits. Affect congruent, mood euthymic and anxious. Thoughts linear, logical, no signs of hallucinations or delusions. Client Response/Progress/Benefit: []Pt remained an active participant AEB providing contributions to group discussion, listening attentively to others, and engagement in small group discussion. Pt attentive during psychoeducation on the different boundary styles. Pt did well to work within the small group on identifying strategies for establishing and maintaining healthy boundaries. Pt identified wanting to work on improving her time boundaries by taking steps to increase her ability to follow-through with plans to leave her father?s house by a specific time. Appeared to benefit from increased awareness of boundary styles and strategies to improve setting boundaries. Will continue IOP tx to increase consistent use of healthy coping skills, engage in behavior activation, and prevent decompensation. Narrative Note: []
--- NOTE | 2023-05-31 09:00 | BH.SGPN.GN ---
Behaviors/Verbalizations/Mental Status: []Pt alert and oriented, casually dressed and groomed. Eye contact good. Motor activity restless. Speech within normal limits. Affect congruent, mood euthymic. Thoughts linear, logical, no signs of hallucinations or delusions. Reviewed pt?s symptom tracker, no reported suicidal ideation, denies plan, or active intent. Client Response/Progress/Benefit: [] Pt responded well to session, open to contributing with group and engaged. Per symptom tracker pt reports a 1/5 for depression and 0/5 for anxiety. Patient reported mental health positive as feeling excited that over the weekend she was more innovative about resolving and working through the physical pain she was experiencing. Patient stated typically when feeling pain she just lays around and is able to do anything. Patient noted over the weekend instead she made accommodations for herself so that she could still accomplish chores and task around the house to be more helpful. Patient stated additional mental twin was improved mood due to having a perspective switch and focusing on what she can do within the limits of her physical pain. Seemed to benefit from support from peers. Pt will continue IOP tx to continue use of healthy coping skills, continue to challenge negative and distorted perspective, and prevent decompensation
--- NOTE | 2023-05-31 10:10 | BH.SGPN.GN ---
Behaviors/Verbalizations/Mental Status: [] Eye contact is good. Motor activity is appropriate. Appearance is casual. Speech is Appropriate. Mood is anxious. Affect is congruent. Thoughts are linear and logical. No evidence of psychosis. Client Response/Progress/Benefit: [] Pt was an active participant in group discussion. Attentive during psychoeducation on SMART goals. Participated in experiential activity. Engaged during interactive discussion on the benefits of setting goals which group identified as; increase self-worth, increase confidence, can motivate us, can lead to personal growth, and can give one a sense of purpose. Participated during interactive discussion on possible obstacles to obtaining goals which involved; little patience, low motivation, feeling burned out, setting unrealistic goals, limited time, stressors, other responsibilities, negative self-talk, doubt, cognitive distortions, lack of resources, and lack of focus. Benefited from increased understanding of benefits of goals, obstacles to obtaining goals, and methods for setting appropriate goals (SMART goals). Will continue in IOP to prevent decompensation, increase healthy coping skills, and improve functioning to maintain employment. Narrative Note: []
--- NOTE | 2023-05-31 11:15 | BH.SGPN.GN ---
Behaviors/Verbalizations/Mental Status: []Pt alert and oriented, casually dressed, appropriately groomed. Eye contact good. Motor activity appropriate. Speech within normal limits. Affect congruent, mood anxious and euthymic. Thoughts linear, logical, no signs of hallucinations or delusions. Client Response/Progress/Benefit: []Pt was engaged during discussion and willing to complete the worksheet challenging them to develop a personal SMART goal. Pt chose the goal of identifying 3 things she contributes outside of work each evening over the next week. Pt stated this will benefit them by improving her mood, reduce negative thinking, improve self-worth and compassion throughout the day. Pt identified barriers which included forgetting, negative self-talk, habit, and low motivation. Identified for low motivation she will reach out to a support to help hold her accountable or identify a reward to help incentivize herself. Pt receptive to identifying solutions for these barriers and willing to begin working on this goal. Benefited from this group by developing a short-term SMART goal related to mental health. Will continue IOP to increase self-care, improve identification and use of healthy skills, and prevent decompensation. Narrative Note: []
--- NOTE | 2023-06-02 09:01 | BH.SGPN.GN ---
Behaviors/Verbalizations/Mental Status: [] Eye contact is good. Motor activity is appropriate. Appearance is casual. Speech is Appropriate. Mood is irritable. Affect is constricted. Thoughts are linear and logical. No evidence of psychosis. Reviewed daily check in sheet and denies suicidal ideation or intention. Client Response/Progress/Benefit: [] Pt participated when prompted. Attentive. Daily symptom tracker notes 5 for depression and /5 for anxiety. Client chose to not share this morning. Per symptom tracker she reported feeling like her mood is generally better, functioning is better, and is taking her medications as prescribed. Seemed to benefit from being in a supportive environment. Will continue in IOP to increase consistent use of healthy coping skills, challenge distorted thoughts, and prevent decompensation.
--- NOTE | 2023-06-02 10:10 | BH.SGPN.GN ---
Behaviors/Verbalizations/Mental Status: []Client alert and oriented, casually dressed and groomed. Eye contact good. Motor activity appropriate. Speech within normal limits. Affect congruent, mood euthymic and anxious. Thoughts linear, logical, no signs of hallucinations or delusions. Client Response/Progress/Benefit: []Pt engaged in session AEB listening attentively to others and providing insight to group discussion. Pt engaged in activity, able to connect how it can be uncomfortable and difficult to accept when things are out of one?s own control. Pt worked with group to identify what things in life can be hard to accept. Group identified things hard to accept as: of a loved one, body image, loss of relationship, mental health diagnosis, other?s behaviors, and past decisions. Pt worked on identifying what personal things are hard to accept for themself, sharing that discomfort, other?s opinions, behaviors, and that she cannot resolve other?s problems for them are things pt struggles with accepting. Pt seemed to benefit from increased awareness of importance of acceptance. Pt to continue IOP to improve mood stability, increase application of distress tolerance skills, and prevent decompensation. Narrative Note: []
--- NOTE | 2023-06-02 11:10 | BH.SGPN.GN ---
Behaviors/Verbalizations/Mental Status: []Pt alert and oriented, neatly dressed and groomed. Eye contact good. Motor activity appropriate. Speech within normal limits. Affect congruent, mood euthymic. Thoughts linear, logical, no signs of hallucinations or delusions. Client Response/Progress/Benefit: [] Pt responded well to session AEB taking notes and contributing to discussion throughout. Pt engaged as group continued discussion on acceptance and the mental health benefits of practicing acceptance. Pt and peers identified what makes acceptance challenging and pt completed a self-reflection exercise on what is hard to accept in pt's life. Pt identified struggling to accept that ?I can?t fix other people?s problems.? Group identified strategies to increase acceptance and pt shared wanting to focus on using journaling and focusing on listening without giving advice unless she is asked. Pt appeared to benefit from gaining insight and learning strategies to increase acceptance. Pt will continue IOP tx to promote mood stability, continue? to combat distortions, and increase self-confidence. Narrative Note: []
--- NOTE | 2023-06-02 11:57 | PCM.BH.PN ---
Progress Note Progress Note: History of Present Illness/Interim History: The patient is a 23-year-old female with a history of anxiety, depression, PTSD and cluster B traits who is seen in follow-up at the [facility] behavioral health [facility]. I last saw the patient 1 month ago and at that time her Prozac dose was increased to 40 mg p.o. daily. The patient states that she is tolerating the medication well and feels less depressed and less anxious now. The patient states that she no longer wakes up feeling depressed anymore. According to the staff the patient has had consistent attendance and remains engaged in the program. She has made significant progress and feels she is able to use the new skills she is learning to help deal also with her chronic pain issues. 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 She denies any crying for the past week. Her sleep is better now at 9 hours a night and she is no longer sleeping too much. She still has occasional hopelessness. She denies any thoughts or actions of self-harm. She denies passive thoughts of , suicidal ideation, homicidal ideation, plan for suicide, hallucinations or delusions. Current Psychiatric Medications: [] Prozac 40 mg p.o. daily (x1 month now) Mental Status Examination: [] The patient is a 23-year-old obese, female who appears normal for stated age and is casually dressed and groomed with good hygiene. She has no psychomotor agitation or retardation. Eye contact is good and speech is normal rate and rhythm and fluent with no pressure. Mood is mildly depressed. Affect is full and normal. Thought process is organized and goal-directed and not overinclusive. Thought content: The patient is hopeful for the future. There is no evidence of passive thoughts of , suicidal ideation, plan for suicide, homicidal ideation, hallucinations or delusions. Reality testing is intact. Judgment is intact. Insight is fair and improving. Impulsivity is moderate. Diagnoses: [] 1. Major depression, recurrent, severe without psychosis (improving) 2. Generalized anxiety disorder 3. PTSD 4. Cluster B traits 5. Rheumatoid arthritis, untreated with chronic pain 6. Work and primary support issues Plan: [] The patient will continue the IOP program at [facility] as the structure, support, education and group therapy will hopefully prevent worsening of the patient's symptoms. She felt safe during the interview and if it anytime she does not feel safe she will let us know or go to the emergency room. No medication changes were made today. She will continue to follow-up with her outpatient providers and I will see the patient in follow-up while she is in the IOP program. She is encouraged strongly to get treatment for her rheumatoid arthritis to lower the levels of inflammation which could also be affecting her depression and possibly making it worse.
--- NOTE | 2023-06-04 10:03 | BH.SGPN.GN ---
Behaviors/Verbalizations/Mental Status: [] Client alert and oriented, neatly dressed and groomed. Eye contact good. Motor activity appropriate. Speech within normal limits. Affect full, mood euthymic. Thoughts linear, logical, no signs of hallucinations or delusions Client Response/Progress/Benefit: [] Client was an active participant in group discussion and experiential activity. Attentive during psychoeducation on resilience. Participated in interactive discussion with peers on the definition of resilience and where it comes from. Group identified that resiliency can be impacted by; past experiences, physical and mental health status, and supports. Client shared personal examples of what impacted their ability to handle resilience in the past. Able to relate experiential activity of group juggle to topics of resilience. Worked well with peers in small group in which they identified factors that contribute to resilience. Benefited from increased awareness of resilience and the factors that contribute to building resilience. Will continue in IOP to prevent decompensation and challenge negative core beliefs. Narrative Note: []
--- NOTE | 2023-06-04 11:13 | BH.SGPN.GN ---
Behaviors/Verbalizations/Mental Status: [] Client alert and oriented, neatly dressed and groomed. Eye contact good. Motor activity appropriate. Speech within normal limits. Affect full, mood euthymic. Thoughts linear, logical, no signs of hallucinations or delusions Client Response/Progress/Benefit: [] Client responded well to session AEB completing the resilience worksheet provided. Client actively participated in the discussion and worked cooperatively with group to identify strategies to enhance each of the components discussed. Client reports belief they already use resilience trait of ?accepting that change is a part of living. Client discussed that they could work on Avoid seeing crises as insurmountable problems. Client seemed to benefit from discussing strategies for improving personal resilience and identifying resilience traits client already possesses. Will continue IOP tx to increase positive thought processes and increase overall functioning. Narrative Note: []
--- NOTE | 2023-06-04 14:51 | BH.MDN_ITS ---
Multi-Disciplinary Note Note 60-min Individual: Time Started:: 09:10 Date: 06/04/23 Purpose of session/treatment goals addressed:: To work on thought challenging techniques and improve self-compassion. Another goal was to discuss aftercare plan. Eye Contact:: Good Motor Activity:: Appropriate Appearance:: Casual Speech:: Appropriate Mood:: Depressed and Other (tired; low energy) Affect:: Constricted Thoughts:: Circular and No evidence of hallucinations/delusions noted Staff Interventions:: thought challenging, motivational interviewing, CBT techniques, discharge planning, strengths perspective, goal setting and other (reviewed homework from last session) Client Response:: Pt responded well to session, open to meeting with therapist. Pt shared she is doing better this week and feels less pessimistic. Pt has been trying to think outside the box to help cope with her physical pain after work and had an idea of getting a wheelchair for her first floor, so pt can still be active after work, but not push herself too hard. Pt shared she wants to focus on not just going to work and sleeping as pt felt that was a major contributor to her depression in the past. Pt has plans to cook, clean a little, and play her video game after work. Pt feels that she and her 's relationship has been improving and pt feels more and more vulnerable with him which is helping to heal pt's anxious attachment. Pt's [id number] in an ongoing stressor, but pt feels she is managing well. Pt receptive to continuing to work on open communication, using self-compassion, and using opposite action. Pt selected a therapist and plans to calls today to schedule counseling for after IOP. Pt will discharge the week of 06/14/23. Risks/Concerns:: Pt denies any active SI, plan, or intent. Pt denies any thoughts of . Progress Toward Goals/Plan:: Pt continues to make progress towards her tx goals AEB pt reporting doing well at work, increased ability to challenge distortions, and improved functioning at home. Pt still endorses ruminations, negative thoughts of self, and lack of motivation at times, but these are resolving. Pt was given options for outpatient therapists and pt agreed to call She Arora at [facility]. Pt will continue IOP tx to reinforce mood stability, further improve daily functioning, and increase self- compassion. Time Stopped:: 10:10
--- NOTE | 2023-06-07 09:00 | BH.SGPN.GN ---
Behaviors/Verbalizations/Mental Status: [] Eye contact is good. Motor activity is appropriate. Appearance is casual. Speech is Appropriate. Mood is anxious. Affect is congruent. Thoughts are linear and logical. No evidence of psychosis. Reviewed daily check in sheet and no reports of suicidal ideations or intent. Client Response/Progress/Benefit: [] Pt was an active participant in group discussions. Attentive. Daily symptom tracker notes 11/12 for anxiety. Discussed with the group anxiety and guilty producing event that occurred yesterday. She talked at length regarding this event. Significant reports of cognitive distortions (mind-reading) which impact her thoughts and behaviors. Group was able to point this out to patient and she responded well to challenges and feedback. Increased awareness. Progress noted as she reports often sitting with the uncomfortable and not feeling guilty about completing self-care which has improved her mood. Will continue in IOP to maintain gains and prevent decompensation. Narrative Note: []
--- NOTE | 2023-06-07 10:15 | BH.SGPN.GN ---
Behaviors/Verbalizations/Mental Status: []Pt alert and oriented, casually dressed and groomed. Eye contact good. Motor activity appropriate. Speech within normal limits. Affect congruent, mood euthymic. Thoughts linear, logical, no signs of hallucinations or delusions. Client Response/Progress/Benefit: [] Pt was an active participant in group discussions and activities. Attentive during psychoeducation. Pt engaged during interactive discussion in which the group defined self-care and discussed its benefits. ?Worked with peers in a small group to identify myths related to self-care which included; Self-care means you are not productive, you have to earn self-care, and it is selfish. Pt participated in small groups where they worked to bust these self-care myths. Benefited from increased awareness of self-care, its benefits, and the consequences of not utilizing self-care strategies. Pt shared a barrier for self-care for her has been ?telling myself I only deserve it if I was really productive that day.? Will continue IOP tx to promote gains, further reduce negative thinking patterns, and improve daily functioning. ? Narrative Note: []
--- NOTE | 2023-06-07 11:15 | BH.SGPN.GN ---
Behaviors/Verbalizations/Mental Status: []Pt alert and oriented, casually dressed and groomed. Eye contact good. Motor activity appropriate. Speech within normal limits. Affect congruent, mood euthymic. Thoughts linear, logical, no signs of hallucinations or delusions. Client Response/Progress/Benefit: [] Pt engaged participant AEB completing self-assessment worksheet and providing input throughout discussion. Participated in group discussion on the various areas of self-care. Pt completed worksheet identifying current self-care practices and what self-care activities pt wants to start using. Pt selected psychological self-care to begin practicing more consistently. Pt plans to do this by activating old hobbies and interests pt used to enjoy. Appeared to benefit from completing the self-care evaluation and gaining insights into current self-care practices, as well as identifying areas in which pt would like to improve upon.?Pt will continue IOP tx to promote gains, further increase self-compassion, and improve daily functioning. Narrative Note: []
== END 2023-06-07 23:59 ==
LOC: BHIOP 07:17
PROVIDERS: PCP Nurse Practitioner Adult Health; Referring Provider Psychiatry & Neurology Psychiatry; Visit Provider Psychiatry & Neurology Psychiatry
DX: F33.2 Major depressive disorder, recurrent severe without psychotic features (principal); F43.10 Post-traumatic stress disorder, unspecified; F41.1 Generalized anxiety disorder
CPT/HCPCS: S9480; 90834; 90837; 90853

== ENCOUNTER 2023-06-03 13:44 | Emergency (ER) | payer OTHER, SELFPAY ==
[2023-06-03 13:47] VITALS: BP 153/93; PULSE 101; RESP 18; TEMP 36.2; O2SAT 99; BMI 41.7
--- NOTE | 2023-06-03 15:25 | ED.RN ---
PT LWBS [id number]
== END 2023-06-03 15:15 | disposition left against medical advice (07) ==
LOC: ED 16:03
PROVIDERS: PCP Nurse Practitioner Adult Health
DX: Z00.00 Encounter for general adult medical examination without abnormal findings (principal)

== ENCOUNTER 2023-06-03 22:47 | Emergency (ER) | payer OTHER, SELFPAY ==
[2023-06-03 22:48] VITALS: BP 133/70; PULSE 85; RESP 16; TEMP 36.4; O2SAT 100; BMI 40.9
--- NOTE | 2023-06-03 23:12 | EDS_ITS ---
HPI History of Present Illness Chief Complaint: Sore Throat Informant: patient Narrative Narrative: Patient states earlier today right after taking her usual pills, she had foreign body sensation in her throat with discomfort with swallowing although she was able. It lasted most of the day, she states she came here to the ER but was not seen because it was so busy that she left but now she came back, mostly for a work note. She states that the discomfort is completely gone, she was concerned about it though. It lasted for multiple hours. Gradually went away. PFSH PFSH Medical History Acid reflux Generalized anxiety disorder Hx of ovarian cyst Major depressive disorder, recurrent severe without psychotic features PTSD (post-traumatic stress disorder) Rheumatoid arthritis Home Medications norgestimate 0.25 mg-ethinyl estradiol 35 mcg tablet (Sprintec (28)) 1 tab PO DAILY 02/08/23 [History Last Taken Unknown] omeprazole 20 mg capsule,delayed release 20 mg PO DAILY 02/08/23 [History Last Taken Unknown] fluoxetine 40 mg capsule (Prozac) 40 mg PO DAILY 30 days #30 caps 05/05/23 [Rx Last Taken Unknown] Allergy/AdvReac Type Severity Reaction Status Date / Time No Known Allergies Allergy Verified 06/03/23 22:48 Family History Grandmother Diabetes Lupus Grandfather Cancer Social History Smoking Status: Never smoker ROS ROS ED Constitutional Constitutional ED: Denies chills or fever(s) ENT ENT ED: Reports as per HPI, sore throat and other Details: FB sensation in throat Cardiovascular Cardiovascular: Denies chest pain or racing heartbeat Respiratory/Chest Respiratory/Chest: Denies cough or dyspnea Gastrointestinal Gastrointestinal: Denies abdominal pain, nausea or vomiting EXAM Physical Exam Const Vital Signs: 06/03/23 22:48 Temperature 97.5 F L Temperature Source Temporal Pulse Rate 85 Respiratory Rate 16 Blood Pressure 133/70 H Blood Pressure Mean 91 Pulse Ox 100 Positive well nourished and well developed General Appearance ED: well developed and NAD HEENT Reports moist mucous membranes HEENT Narrative: P OP normal. No trismus. No tonsillar asymmetry or swelling. Eyes PERRL and EOMs intact bilaterally Neck no lymphadenopathy and supple General: Negative for tenderness Neuro oriented x3, CN's II-XII intact bilaterally and no sensory deficits noted Motor Exam: strength 5/5 throughout Psych mental status grossly normal Skin no rashes or lesions noted and no wounds MDM MDM MDM Narrative Medical decision making narrative: Reassured, this was likely pill esophagitis, and/or in the vallecula. Advised to continue taking her omeprazole, supportive care advised we discussed reasons to return she was given a work note for today. Discharge Plan Triage Chief Complaint: Sore Throat ED Provider: Prabhakar Brown Dx/Rx/DC Orders Clinical Impression: Pill esophagitis Instructions: Esophagitis Prescriptions: No Action omeprazole 20 mg capsule,delayed release(DR/EC) 20 mg PO DAILY norgestimate-ethinyl estradiol [Sprintec (28)] 0.25-35 mg-mcg tablet 1 tab PO DAILY Patient Comments: TAKE 1 TABLET BY MOUTH ONCE DAILY fluoxetine [Prozac] 40 mg capsule 40 mg PO DAILY 30 Days Qty: 30 1RF Stand Alone Forms: ED Work / School Excuse Primary Care Provider: Haley Gilbert NP Referrals: Haley Gilbert NP, [facility] [Primary Care Provider] - As Needed Disposition Disposition: Home, Self Care
== END 2023-06-03 23:21 | disposition home or self-care (01) ==
LOC: ED 23:19
PROVIDERS: Emergency Provider Emergency Medicine; PCP Nurse Practitioner Adult Health; Visit Provider Emergency Medicine
DX: K20.80 Other esophagitis without bleeding (principal); F33.9 Major depressive disorder, recurrent, unspecified; K21.9 Gastro-esophageal reflux disease without esophagitis; Z79.899 Other long term (current) drug therapy; Z79.3 Long term (current) use of hormonal contraceptives
CPT/HCPCS: 99282

== ENCOUNTER 2023-06-08 07:15 | Outpatient (RCR) | payer OTHER, SELFPAY ==
[2023-06-08 00:39] VITALS: BP 151/89; PULSE 95
--- NOTE | 2023-06-09 09:03 | BH.SGPN.GN ---
Behaviors/Verbalizations/Mental Status: []Pt alert and oriented, casually dressed and groomed. Eye contact good. Motor activity appropriate. Speech within normal limits. Affect congruent, mood euthymic, content. Thoughts linear, logical, no signs of hallucinations or delusions. Reviewed pt?s symptom tracker, no reported suicidal ideation, denies plan, or active intent as of 06/09/23. Client Response/Progress/Benefit: []Pt responded well to session, open to contributing to group and engaged. Pt reports feeling chill this morning. Identified current mental health wins as making progress in using behavior activation skills like opposite action to continue to socialize with supports and engage in activities she enjoys. Provided examples of making dinner and buying tickets to see a movie with her sister next week. Shared that she has been encouraged by her overall progress and ability to maintain the gains she has been making thus far. Additional win shared as scheduling outpatient therapy and psychiatry appointments in preparation for her upcoming discharge from IOP tx. Pt shared that discharging from tx is her current stressor as she is worried about maintaining gains. Discussed various skills pt can use to promote continued stability. Pt appeared to benefit from supportive feedback of the group, as well as reflecting on mental health wins. Pt will continue IOP tx to promote mood stability, encourage continued coping skill application, and prevent decompensation. Narrative Note: []
--- NOTE | 2023-06-09 10:10 | BH.SGPN.GN ---
Behaviors/Verbalizations/Mental Status: [] Eye contact is good. Motor activity is appropriate. Appearance is casual. Speech is Appropriate. Mood is euthymic. Affect is congruent. Thoughts are linear and logical. No evidence of psychosis or hallucinations. Client Response/Progress/Benefit: [] Pt was an active participant in group discussion and activity. Attentive during psychoeducation. Along with peers was able to identify barriers to taking action on her mental health which included: fear of failure, the unknown, change, one's environment, past negative experiences, being passive, and fear of vulnerability. Identified several symptoms and stressors that she feels are holding her back from progress such as fear of loneliness, isolation, being not heard, fear of abandonment, and reassurance seeking. Benefited from increased self-awareness of obstacles. Will continue in IOP to increase use of healthy coping skills, challenge distortions, and prevent decompensation.
--- NOTE | 2023-06-09 11:10 | BH.SGPN.GN ---
Behaviors/Verbalizations/Mental Status: []Pt alert and oriented, casually dressed and groomed. Eye contact good. Motor activity appropriate. Speech within normal limits. Affect congruent, mood euthymic. Thoughts linear, logical, no signs of hallucinations or delusions. Client Response/Progress/Benefit: []Pt responded well to session, taking notes and participating in worksheet discussion. Pt connected with the zones of action/change and that making sustainable change comes from stepping out of one?s comfort zone into the learning zone. Pt set a goal to gain control over pt?s fear of abandonment. Pt reported plans to challenge self to use opposite action when pt has the urge to shut down and withdraw from her supports. Pt identified support pt will need as spending time with her pets, thought challenging, and reminders. Appeared to benefit from identifying a small goal to benefit mental health. Will continue IOP tx to promote gains, further combat distorted thought patterns, and improve mood stability. Narrative Note: []
--- NOTE | 2023-06-11 09:05 | BH.SGPN.GN ---
Behaviors/Verbalizations/Mental Status: [] Eye contact is good. Motor activity is appropriate. Appearance is casual. Speech is Appropriate. Mood is euthymic. Affect is anxious/irritable. Thoughts are linear and logical. No evidence of psychosis. Reviewed daily check in sheet and no reports of suicidal thoughts. Client Response/Progress/Benefit: [] Pt was an active participant in group discussions. Attentive. Daily symptom tracker notes /5 for irritability and /5 for anxiety. Mental health win was ? I woke up and got here?. Addressed being ?low? and challenging automatic thoughts to isolate and skip group this AM. Reports being overall more agitated today. She reports that she was able to challenge thoughts and perspectives this AM which in general has been a beneficial skills learned in IOP. ? I ?ve seen a difference?. Progress noted as she has maintained employment for several weeks and is beginning to consistently use skills. Benefited from group support, encouragement, and feedback. Will continue in IOP to prevent decompensation and maintain gains. Narrative Note: []
--- NOTE | 2023-06-11 10:15 | BH.SGPN.GN ---
Behaviors/Verbalizations/Mental Status: []Pt alert and oriented, neatly dressed and groomed. Eye contact good. Motor activity appropriate. Speech within normal limits. Affect congruent, mood euthymic. Thoughts linear, logical, no signs of hallucinations or delusions. Client Response/Progress/Benefit: []Pt was an active?participant in small group discussion. Pt?s group worked together to identify benefits of healthy relationships which include; feelings of belonging, safety, and support. Group identified factors that lead to unhealthy relationships. Pt?s personal factors included fear which leads to pt ?wearing a mask? and then feeling anxious in healthy relationships. Actively participated in group experiential activity and expressed ideas to group. Benefited from increased insight and awareness of benefits of healthy relationships and factors that contribute to unhealthy relationships. Will continue IOP tx to promote mood stability, reinforce gains, and further increase self-confidence. Narrative Note: []
--- NOTE | 2023-06-11 11:15 | BH.MDN ---
Multi-Disciplinary Note Note 60-min Individual: Time Started:: 11:16 Date: 06/11/23 Purpose of session/treatment goals addressed:: To process current stressors, symptoms, and triggers. Another goal was to discuss aftercare and begin a maintenance plan. Eye Contact:: Good Motor Activity:: Appropriate Appearance:: Casual Speech:: Appropriate Mood:: Euthymic Affect:: Congruent Thoughts:: Linear, Logical and No evidence of hallucinations/delusions noted Staff Interventions:: thought challenging, CBT techniques, discharge planning, strengths perspective, goal setting and taught coping skills Client Response:: Pt responded well to session, open to meeting with therapist. Pt reports her mood has stayed more stable and she feels that she is doing well at home and at work. Pt shared there is still stress at work, but pt feels like it is impacting her less. Pt stated I feel like something switched while talking about her perspective. Pt reports belief that she feels more able to combat distortions now and be kinder to herself. Pt has been consistent with her homework and using skills outside of IOP. Pt also feels that her physical pain has been lessened because pt is more hopeful and has more energy. Pt feels like creating a routine for cleaning, cooking, and practicing self-care has been helpful. Pt also feels she and her are doing well and having more meaning conversations. Pt shared when she discharges from IOP tx she wants to continue working on her attachment style and being vulnerable. Risks/Concerns:: Pt denies any suicidal ideations or thoughts of for the past two weeks. Pt is future oriented. Progress Toward Goals/Plan:: Pt continues to make progress towards her tx goals AEB her consistent engagement, ability to function at work and home, and improved perspective and mood. Pt feels ready to discharge next week and pt was able to get in with [facility] on 06/16/23. Pt also wants to attend IOP aftercare after discharge to hold herself accountable. Pt understands that she can continue to improve in setting healthy boundaries, challenging anxious thought patterns, and being vulnerable. Pt will continue IOP tx for two more sessions to reinforce healthy coping skills and promote gains. Time Stopped:: 12:20
--- NOTE | 2023-06-14 09:01 | BH.SGPN.GN ---
Behaviors/Verbalizations/Mental Status: []Pt alert and oriented, casually dressed and groomed. Eye contact good. Motor activity appropriate. Speech within normal limits. Affect congruent, mood content and anxious. Thoughts linear, logical, no signs of hallucinations or delusions. Reviewed pt?s symptom tracker, no suicidal ideation reported, denies plan, or active intent as of 06/14/23. Client Response/Progress/Benefit: []Pt responded well to session, open to processing with group and engaged. Pt reports feeling anxious this morning and explained that she had an uncomfortable encounter with her [id number] in which he became angry and hostile towards her cat. Pt shared that this had been upsetting but she did well to remain emotionally regulated and discuss establishing firmer boundaries with her the next day. Pt shared advocating for her needs and was grateful her had been receptive of this. Additional win noted as talking with her about budgeting. Pt appeared to benefit from supportive feedback of the group, as well as reflecting on mental health wins. Pt will continue IOP tx to promote mood stability and continued Narrative Note: []
--- NOTE | 2023-06-14 10:15 | BH.SGPN.GN ---
Behaviors/Verbalizations/Mental Status: []Eye contact is fair. Motor activity is appropriate. Appearance is casual. Speech is Appropriate. Mood is anxious and euthymic. Affect is congruent. Thoughts are linear and logical. No evidence of psychosis. Client Response/Progress/Benefit: []Pt participated during the group discussion. Attentive during psychoeducation and actively engaged during experiential activity. Participated during interactive discussion on aspects of fixed mindset. Group identified several aspects of fixed mindset which include: inflexible, belief that one cannot grow, absolute thinking, and all of one's skills, traits, and behaviors can't change. Group identified personal examples of fixed thinking in which pt shared personal fixed thoughts as: I'm too much for anyone to love or handle, and my purpose is to care for others more than I care for myself. Benefited from increased understanding of personal fixed mindsets and how they can impact mental health. Will continue in IOP to challenge distortions, increase confidence, and prevent decompensation.
--- NOTE | 2023-06-14 11:15 | BH.SGPN.GN ---
Behaviors/Verbalizations/Mental Status: []Pt alert and oriented, neatly dressed and groomed. Eye contact good. Motor activity appropriate. Speech within normal limits. Affect congruent, mood euthymic. Thoughts linear, logical, no signs of hallucinations or delusions. Client Response/Progress/Benefit: []Pt was an active participant during activity and discussion AEB providing some input, connecting with peers, as well as taking notes throughout. Pt did well to engage as group worked on identifying characteristics and benefits of adopting a growth mindset. Worked with fellow participants in reframing the example fixed thoughts into growth mindset thoughts. Pt worked on changing own fixed thought of ?I?m too much for anyone to love or handle ? to growth thought of ?I may be complicated, but there are people who love and accept me.? Benefitted from discussing benefits of growth mindset and brainstorming strategies for prompting growth-mindset. Pt appeared to benefit from working in small groups to challenge own thoughts and help peers. Pt will continue IOP tx to reinforce healthy coping skills and establish aftercare. Narrative Note: []
--- NOTE | 2023-06-15 09:00 | BH.SGPN.GN ---
Behaviors/Verbalizations/Mental Status: [] Pt alert and oriented, neatly dressed and groomed. Eye contact good. Motor activity appropriate. Speech within normal limits. Affect congruent, mood euthymic and anxious. Thoughts linear, logical, no signs of hallucinations or delusions. Reviewed pt?s symptom tracker, no risk for suicidal ideation, plan, or intent 06/15/23 Client Response/Progress/Benefit: []Pt responded well to session, attentive and engaged. Pt reports feeling shaken up about a recent stressor this morning, but overall pt feels happier. It's pt's last day of IOP tx and pt reflected on her personal growth and progress with symptom management. Pt shared the biggest change she noticing is in her perspective and reaction to stressors. Pt stated she was recently stressed and triggered, but she did not blow up or catastrophize which was significant. Pt also feels more capable of challenging distortions and communicating more vulnerably with her . Pt appeared to benefit from reflecting on her growth. Pt will discharge from IOP tx today as pt has made significant progress and no longer meets criteria for IOP level of care. Narrative Note: []
--- NOTE | 2023-06-15 11:05 | BH.SGPN.GN ---
Behaviors/Verbalizations/Mental Status: [] Eye contact is good. Motor activity is appropriate. Appearance is casual. Speech is Appropriate. Mood is euthymic. Affect is full. Thoughts are linear and logical. No evidence of psychosis Client Response/Progress/Benefit: [] Pt was an active participant in group discussions. Attentive during psychoeducation. In small group pt along with peers developed an active plan for their crisis warning signs. Pt identified two crisis warning signs as well as an action plan for each. One crisis warning sign is isolation with an actions plan that involved; reaching out to friends, opposite-action, snuggle pets, schedule plans, ask for help set goals. Other warning sign was distancing self from others with an action plan that involved; communicating with supports, thought-challenging, accountability, and verbalizing struggles. Benefited from increased awareness of crisis warning signs and by developing crisis intervention strategies. Pt is set to discharge from [facility] today. Narrative Note: []
--- NOTE | 2023-06-15 11:15 | BH.MDN ---
Multi-Disciplinary Note Note 45-min Individual: Time Started:: 10:20 Date: 06/15/23 Purpose of session/treatment goals addressed:: To process any current stressors, review pt's progress in IOP, and review healthy coping skills. Eye Contact:: Good Motor Activity:: Appropriate Appearance:: Casual Speech:: Appropriate Mood:: Anxious Affect:: Constricted Thoughts:: Linear, Logical and No evidence of hallucinations/delusions noted Staff Interventions:: thought challenging, motivational interviewing, CBT techniques, discharge planning and strengths perspective Client Response:: Pt responded well to session, open to meeting with therapist. Pt proud of herself for graduating [facility] today and able to acknowledge the progress she has made. Pt feels in a better place physically and emotionally, but she wanted to process a current stressor that was bothering her today. Pt shared on her stressor and able to process why a recent situation impacted her so much. Pt gained awareness that she was having a trauma response and that the boundary she set because of the situation was valid. Reviewed the pros and cons of setting boundaries and pt reminded of the benefits she has seen from communicating more with her . Pt reflected on the things that helped her the most while in [facility] which included challenging her perspective, opposite action, communicating, and being vulnerable. Pt did well to give herself credit and remind herself that her boundaries are valid. Risks/Concerns:: No report of thoughts of or SI for the past several weeks. Progress Toward Goals/Plan:: Pt will discharge from IOP tx as her overall symptom reduction is 55% since admission with anger decreasing by 33%, depression decreasing by 71%, and anxiety decreasing by38%. Pt has increased self-confidence in her ability to manage stressors, emotions, and her distorted thinking patterns. Pt will follow up with She Arora at [facility] for individual counseling and [facility] aftercare for additional support. Time Stopped:: 11:00
--- NOTE | 2023-06-15 11:16 | BH.IGGP_ITS ---
Aftercare Plan Demographics Treatment End Date:: 06/15/23 Psychiatrist:: Sharon Blair Psychiatrist Office #:: [id number] [facility]/IOP Therapist:: Clara Padilla Therapist Phone #:: [phone] Medications Home Medications norgestimate 0.25 mg-ethinyl estradiol 35 mcg tablet (Sprintec (28)) 1 tab PO DAILY 02/08/23 omeprazole 20 mg capsule,delayed release 20 mg PO DAILY 02/08/23 fluoxetine 40 mg capsule (Prozac) 40 mg PO DAILY 30 days #30 caps 05/05/23 Plan Details Progress/Aftercare Plan Details:: Dedra has responded well to treatment as evidenced by Dedra consistently attending IOP sessions and her reduction of DSM-5 scores since admission. Dedra was always attentive and receptive to learning during group and individual sessions. Dedra actively applied coping skills outside of IOP and reports overall her mood is improved and she is functioning better than she was several months ago. Dedra?s overall symptom re duction is 55% since admission with anger decreasing by 33%, depression decreasing by 71%, and anxiety decreasing by38%. Dedra has increased self- confidence in her ability to manage stressors, emotions, and her distorted thinking patterns. Most importantly, Dedra has gained self-compassion, become more vulnerable, and increased understanding of her worth. Strategies for Success:: 1. Opposite action! Continue to break that cycle of anxiety and depression by not letting emotions be the only drivers of your bus. 2. Remember that thoughts are thoughts NOT facts! You have power in if you give thoughts the time of day or not. 3. self-care! You deserve to take time for you and you also deserve to face the not so fun self-care like setting boundaries and being VULNERABLE 4. Self-compassion! You are human and you will make a mistake?BUT that doesn?t mean you are a failure or not good enough. Give yourself credit for all the wonderful things you do. 5. continue putting in effort to the people and coping skills that serve you 6. Practice positive self- talk and keep track of your wins. 7. Remember progress isn?t linear! You may have a setback or bump in the road, but that doesn?t mean you?ve lost all progress. 8. self-reflection and self-awareness. 10. Live in the [place]!! Appointments Appointments/Referrals to Other Services:: 1. She Arora at [facility] 06/16/23. 2. Dr. Beltran for medication management on 07/07/23. 3. IOP aftercare group starting 06/24/23 for 8 weeks from 2-3:30pm
--- NOTE | 2023-06-15 11:16 | BH.DS_ITS ---
Discharge Summary Demographics Date of Admission:: 04/19/23 Discharge Date: 06/15/23 Presenting Problems at Admission:: Pt is a 23-year-old female with a history of MDD. Pt was referred to [facility] tx by her outpatient psychologist [employer] due to worsening depression that was impacting functioning. Pt reports she had a mental breakdown a year ago and pt continues to struggle with functioning, isolation, and depression. Pt currently endorses a depressed mood, increased sleep, hopelessness, worthlessness, lack of motivation, low energy, anhedonia, and isolative behaviors. Pt also endorses survival ambivalence and feeling like a failure. Pt stated her emotional dysregulation impacts her overall functioning and relationships. Discharge Diagnoses:: Major depressive disorder, recurrent, severe without psychosis F 33.2; Generalized anxiety disorder; PTSD; Cluster B traits Reason for Discharge:: Pt has accomplished her tx goals AEB her reduction of DSM-5 symptoms and self-report of overall improved functioning. Pt no longer m eets criteria for [facility] level of care and will discharge from [facility] and continue with outpatient counseling and psychiatry. Treatment Progress During Treatment & Response: Pt has responded well to treatment as evidenced by Pt consistently attending IOP sessions and his reduction of DSM-5 scores since admission. Pt was always attentive and receptive to learning during group and individual sessions. Pt actively applied coping skills outside of [facility], reports overall her mood is improved, and she is functioning better than she was several months ago. Pt?s overall symptom reduction is 55% since admission with anger decreasing by 33%, depression decreasing by 71%, and anxiety decreasing by 38%. Pt has increased self-confidence in her ability to manage depressive symptoms, been able to return to work (for 6 weeks now), and gained self- compassion. Pt will continue working on her mental health through individual counseling and medication management. Issues Still to be Addressed:: Pt wants to continue working on learning about and gaining skills to cope with her anxious attachment style. Pt also wants to continue working on being vulnerable, increasing self-compassion, and setting healthy boundaries. Pt can benefit from continuing to practice assertive communication with her , setting weekly goals, and incorporating daily self-care practices. Discharge Recommendations/Instructions:: Pt will follow up with She Arora at [facility] for individual counseling. Pt's first appointment is 06/16/23. Pt will also follow up with Dr. Seese for medication management and her first appointment is 07/07/23. Lastly, pt will begin IOP aftercare group starting on 06/24/23 for eight weeks. Discharge Handout
== END 2023-06-15 12:01 | disposition home or self-care (01) ==
LOC: BHIOP 07:15
PROVIDERS: PCP Nurse Practitioner Adult Health; Referring Provider Psychiatry & Neurology Psychiatry; Visit Provider Psychiatry & Neurology Psychiatry
DX: F33.2 Major depressive disorder, recurrent severe without psychotic features (principal); F43.10 Post-traumatic stress disorder, unspecified; F41.1 Generalized anxiety disorder
CPT/HCPCS: S9480; 90834; 90837; 90853

== ENCOUNTER 2023-07-01 11:56 | Outpatient (RCR) | payer OTHER, SELFPAY ==
--- NOTE | 2023-07-01 14:00 | BH.COMM ---
Communication Note Communication with Client Communication Note: Patient completed IOP and presents today to start relapse prevention group which meets once weekly (1.5 hours) for 8 weeks. Case discussed with Dr. Sparks with plan to admit with dx of F33.2
--- NOTE | 2023-07-01 16:21 | BH.MTP_ITS ---
Master Treatment Plan Patient Information Program Physician:: Dr. Sharon Blair Primary Therapist:: Clara BLAS Psychiatric Diagnoses Psychiatric Diagnoses:: Major depressive disorder, recurrent, severe without psychosis F 33.2; Generalized anxiety disorder; PTSD; Cluster B traits Diagnosis Code(s):: F 33.2 Estimated LOS Estimated LOS (in weeks):: 8 Problem/Goal #1 Problem/Goal #1 Stated Goal:: client will maintain or see a reduction in symptoms AEB client score on the DSM 5 cross-cutting measure and improve client's daily functioning. Objectives Objective #1: Stated Objective: Client will continue to consistently apply healthy coping skills to maintain progress made in IOP tx. Interventions: Through group therapy, client will review warning signs and triggers as well as healthy coping skills learned in IOP tx to successfully maintain gains while transitioning into outpatient therapy. Discharge Criteria: Client will have accomplished this goal when client's score on the DSM-5 cross-cutting measure has maintained or reduced over a 8 week period. Target Date: 08/26/23 Review Date: 07/22/23 Status: open Objective #2: Stated Objective: Client will learn and utilize 2-3 maintenance strategies to prevent decompensation from original IOP DSM-5 scores. Interventions: Through group therapy, client will be provided with e ducation on healthy maintenance behaviors, relapse prevention techniques, and healthy coping strategies. Discharge Criteria: Client will have accomplished this goal when can report using at least 2 maintenance skills to prevent decompensation compared to original IOP DSM-5 scores Target Date: 08/26/23 Review Date: 07/22/23 Status: open
== END 2023-07-08 23:59 ==
LOC: BHOG 11:56
PROVIDERS: PCP Nurse Practitioner Adult Health; Referring Provider Psychiatry & Neurology Psychiatry; Visit Provider Psychiatry & Neurology Psychiatry
DX: F33.2 Major depressive disorder, recurrent severe without psychotic features (principal)
CPT/HCPCS: 90853

== ENCOUNTER 2023-07-09 08:16 | Outpatient (RCR) | payer OTHER, SELFPAY ==
--- NOTE | 2023-07-15 14:00 | BH.SGPN.GN ---
Behaviors/Verbalizations/Mental Status: []Pt alert and oriented, casually dressed and groomed. Eye contact good. Motor activity appropriate. Speech within normal limits. Affect congruent, mood euthymic. Thoughts linear, logical, no signs of hallucinations or delusions. Client Response/Progress/Benefit: []Pt receptive of session, engaged throughout. Pt shared she met with all her outpatient providers since last session. Pt has been taking she medications consistently and she reports utilizing healthy coping skills outside of aftercare. These skills included: opposite action, dialectical thinking, problem-solving with her , and communicating with supports. Receptive of discussion on sitting with the uncomfortable and emotional urges. Pt contributed to the discussion of distress tolerance and how building distress tolerance can help improve mood stability and resilience. Pt shared she wants to keep building distress tolerance by advocating for herself when she is anxious. Pt seemed to benefit from support from peers and increasing understanding of distress tolerance. Will discharge from [facility] aftercare as pt has successfully completed the 8 week program and accomplished her tx goals. Narrative Note: []
--- NOTE | 2023-07-22 14:00 | BH.SGPN.GN ---
Behaviors/Verbalizations/Mental Status: []Client alert and oriented, casual in appearance. Eye contact good. Motor activity appropriate. Speech within normal limits. Affect congruent. Mood euthymic. Thoughts linear, logical, no signs of hallucinations or delusions Client Response/Progress/Benefit: [] Pt responded well to session AEB providing input throughout and listening attentively to others. Pt reported meeting their with outpatient counselor this week and has a psychiatry appointment scheduled for a few months from now. Reports taking medications as prescribed. Pt identified several coping skills she has been using over the past week to continue to manage mental health sx, which included: reaching out to supports, assertive communication, opposite action, and affirmations. Pt connected with self-reflection discussion. Worked with group to identify the benefits of self-reflection. Appeared to benefit from identifying how to incorporate self-reflection into daily life. Pt completed aftercare specific self-reflection activity and indicated she has seen continued progress in maintaining mood stability and motivation levels but would like to continue to focus on making improvements in using assertive communication. Pt to continue aftercare to maintain gains and prevent decompensation. Narrative Note: []
--- NOTE | 2023-07-22 16:26 | BH.MTP_ITS ---
Treatment Plan Review Demographics Date of Admission:: 07/01/23 Date of Treatment Plan Review:: 07/22/23 Admitting Diagnoses:: Major depressive disorder, recurrent, severe without psychosis F 33.2; Generalized anxiety disorder; PTSD; Cluster B traits Current Diagnoses:: Major depressive disorder, recurrent, severe without psychosis F 33.2; Generalized anxiety disorder; PTSD; Cluster B traits Patient Status Patient's Response to Treatment:: Pt continues to respond well to treatment AEB pt's consistent attendance, ongoing attentiveness and engagement in group discussions, and continued reporting use of skills outside treatment environment. Pt's symptoms are down an additional 40% since IOP admission. Status of Current Problems and Symptoms: Per pt's DSM-5, pt is still expe riencing feeling nervous/on edge more than half the days, mild depressive symptoms, physical aches, and having issues with sleep. Pt's functioning has significantly improved, but pt still has anxiety about relationships and recently had a work stressor. Progress Problem #1: Problem Name:: Pt will maintain or see a reduction in sx Status of Goals:: Obj 1 - complete with ongoing work encouraged. Pt's DSM 5 scores for anxiety have decreased by 38% since IOP admission and depression has decreased by 71%. Pt reports actively using healthy coping skills and feeling more optimistic. Obj 2 - complete with ongoing work encouraged. Pt had been reporting using opposite action, positive self-talk, assertive communication, and thought challenging. Team Recommendations:: Recommended client continue IOP aftercare group in addition to attending regular outpatient counseling in order to maintain gains. Pt also recommended to continue working on increasing self-confidence and developing healthier core beliefs.
--- NOTE | 2023-07-29 14:00 | BH.SGPN.GN ---
Behaviors/Verbalizations/Mental Status: []Pt alert and oriented, casually dressed and groomed. Eye contact good. Motor activity appropriate. Speech within normal limits. Affect constricted, mood anxious. Thoughts linear, logical, no signs of hallucinations or delusions. Client Response/Progress/Benefit: []Pt responded well to session, attentive and engaged. Pt stated will meet with counselor next week. Pt reported taking medications consistently. Pt stated feeling stressed over continued issues with [id number] and her not following her boundaries. Pt reported she has been trying coping skills like video games, self-care, and cleaning. Pt stated she did not complete homework from last session. Reported having hard time focusing today due to argument with last night and now sure what to do about it. Pt receptive to discussion and reading of the Chapters of My Life handout. Pt able to connect with the chapters and stated belief she is in chapter chapter 3 which means pt recognizes some of the things she does won't help, but struggles with consistently avoiding the unhealthy coping/strategies. Pt struggled with identifying what she wants to do to keep moving forward. Receptive to feedback/support from peers. Agreed she needs to continue to reflect on her situation and develop a plan with her outpatient counselor. Pt appeared to benefit from connecting with peers and reflecting on her application of coping skills. Pt will continue IOP aftercare to promote gains made in IOP and reinforce healthy coping skills.
== END 2023-08-07 23:59 ==
LOC: BHOG 08:16
PROVIDERS: PCP Nurse Practitioner Adult Health; Referring Provider Psychiatry & Neurology Psychiatry; Visit Provider Psychiatry & Neurology Psychiatry
DX: F33.2 Major depressive disorder, recurrent severe without psychotic features (principal); F41.1 Generalized anxiety disorder; F43.10 Post-traumatic stress disorder, unspecified
CPT/HCPCS: 90853

== ENCOUNTER 2023-08-06 14:33 | Emergency (ER) | payer OTHER, SELFPAY ==
[2023-08-06 14:34] VITALS: BP 145/77; PULSE 101; RESP 18; TEMP 36; O2SAT 98; BMI 40.6
--- NOTE | 2023-08-06 14:45 | EDS_ITS ---
HPI History of Present Illness Chief Complaint: Foreign Body Informant: patient Narrative Narrative: Presents secondary to foreign body sensation in her throat. She states she took her medication about 45 minutes ago. She took her control, Prozac, and omeprazole. While driving to work a short time later she noted a foreign body sensation in her throat. She is been able to breathe without difficulty and can swallow without problems. She states this is now the fifth time this is happened. She came to the ER on 1 previous visit but states it was so busy that she left prior to being seen. Symptoms usually resolve after couple hours which she assumes is when the pill disintegrates [facility] Medical History Acid reflux Generalized anxiety disorder Hx of ovarian cyst Major depressive disorder, recurrent severe without psychotic features PTSD (post-traumatic stress disorder) Rheumatoid arthritis Home Medications norgestimate 0.25 mg-ethinyl estradiol 35 mcg tablet (Sprintec (28)) 1 tab PO DAILY 02/08/23 [History Last Taken Unknown] omeprazole 20 mg capsule,delayed release 20 mg PO DAILY 02/08/23 [History Last Taken Unknown] fluoxetine 40 mg capsule (Prozac) 40 mg PO DAILY 90 days #90 caps 07/07/23 [Rx Last Taken Unknown] Allergy/AdvReac Type Severity Reaction Status Date / Time No Known Allergies Allergy Verified 08/06/23 14:59 Family History Grandmother Diabetes Lupus Grandfather Cancer Other Alcoholism Depression Psychiatric care Social History Smoking Status: Never smoker alcohol intake: current details: 2-3x a week what type of physical activity do you participate in: none ROS ROS ED Constitutional Constitutional ED: Denies chills or fever(s) Eyes Eyes: Denies discharge from eye(s) ENT ENT ED: Reports sore throat; Denies discharge from eye(s) or rhinorrhea Cardiovascular Cardiovascular: Denies chest pain or palpitations Respiratory/Chest Respiratory/Chest: Denies cough or dyspnea Gastrointestinal Gastrointestinal: Denies abdominal pain, nausea or vomiting Musculoskeletal Musculoskeletal: Denies back pain or extremity pain Integumentary Denies Abrasions or rash Neurologic Neurologic: Denies headache(s) or weakness Psychiatric Psychiatric: Denies anxiety or depression Allergic/Immunologic Allergic/Immunologic ED: Denies lip swelling or urticaria EXAM Physical Exam Narrative Exam Narrative: Patient sitting upright in bed in no acute distress. Speaks with a strong voice and is tolerating secretions well. Const Vital Signs: 08/06/23 14:34 08/06/23 15:00 Temperature 96.8 F L Temperature Source Temporal Pulse Rate 101 H Respiratory Rate 18 Respiratory Effort Normal Non-Labored Respiratory Pattern Normal Blood Pressure 145/77 H Blood Pressure Mean 99 Pulse Ox 98 Oxygen Delivery Method Room Air Positive well nourished and well developed General Appearance ED: well developed HEENT Reports normocephalic and head/scalp atraumatic Eyes PERRL and EOMs intact bilaterally Neck supple Chest Wall inspection of chest normal and palpation of chest normal Resp normal respiratory effort and clear to auscultation bilaterally Cardio regular rate and regular rhythm GI normal to inspection, nondistended, normoactive bowel sounds Palpation: soft Extremity normal to inspection Neuro oriented x3 and no sensory deficits noted Sensorium / Orientation: alert Motor Exam: strength 5/5 throughout Psych mental status grossly normal Skin no rashes or lesions noted MDM MDM MDM Narrative Medical decision making narrative: Patient is tolerating p.o. fluids without difficulty. We discussed possibility of small piece of the pill being caught versus more likely a scratch in the esophagus that gives the foreign body sensation. She is given a GI cocktail. Patient patient states her throat is numb. The burning and pain sensation is gone. She is tolerating secretions without difficulty. I did refer her to GI as she may require a scope to make sure that she has no evidence of esophageal narrowing or rings. Return instructions are given. Discharge Plan Triage Chief Complaint: Foreign Body Other Complaint: Nausea/Vomiting ED Provider: Arelis Dalton Dx/Rx/DC Orders Clinical Impression: Foreign body sensation in throat Instructions: ED Esophageal Foreign Body, Resolved Prescriptions: No Action omeprazole 20 mg capsule,delayed release(DR/EC) 20 mg PO DAILY norgestimate-ethinyl estradiol [Sprintec (28)] 0.25-35 mg-mcg tablet 1 tab PO DAILY Patient Comments: TAKE 1 TABLET BY MOUTH ONCE DAILY fluoxetine [Prozac] 40 mg capsule 40 mg PO DAILY 90 Days Qty: 90 1RF Primary Care Provider: Haley Gilbert [employer] Referrals: Friend,Ayaz, DO [Med Staff - Active Staff] - As Needed Haley Gilbert NP, [employer] [Primary Care Provider] - Disposition Disposition: Home, Self Care
[2023-08-06] MEDS: Mag Hydrox/Al Hydrox/Simeth 30 ML UDC PO (15:02)
[2023-08-06 15:12] VITALS: BP 126/73; PULSE 80; RESP 18; O2SAT 96
== END 2023-08-06 15:15 | disposition home or self-care (01) ==
PROVIDERS: Emergency Provider Emergency Medicine; PCP Nurse Practitioner Adult Health; Visit Provider Emergency Medicine
DX: R09.89 Other specified symptoms and signs involving the circulatory and respiratory systems (principal); F33.2 Major depressive disorder, recurrent severe without psychotic features; Z79.3 Long term (current) use of hormonal contraceptives; K21.9 Gastro-esophageal reflux disease without esophagitis
CPT/HCPCS: 99283

== ENCOUNTER 2023-08-08 02:38 | Emergency (ER) | payer OTHER, SELFPAY ==
[2023-08-08 02:39] VITALS: BP 125/73; PULSE 62; RESP 18; TEMP 36.7; O2SAT 99; BMI 40.5
[2023-08-08] MEDS: Ondansetron 4 MG/2 ML Vial IV (04:00)
[2023-08-08] MEDS: 0.9% Normal Saline (1000mL) 1,000 ML 1000 ML IV (04:00)
--- NOTE | 2023-08-08 06:38 | EDS_ITS ---
HPI History of Present Illness Chief Complaint: Nausea/Vomiting Detail of Chief Complaint: Nausea running with vertigo Informant: patient Onset/Context/Timing Onset: Today Context: Sudden Onset Timing: Intermittent Quality: Spinning sensation Location: Not applicable Current Severity: Mild Maximum Severity: Severe Worsened by: Movement Relieved by: Remaining still Associated Symptoms Associated Symptoms: Nausea and vomiting Narrative Narrative: Patient is a 23-year-old female who presents with vertigo associated with nausea and vomiting. She first noted when she rolled to the right or left side. She denied double vision or blurred vision. She felt things were moving. She denies headache. She presently reports nausea. She denies neck pain or neck stiffness. She denies fever, chills night sweats. She denies cardiac or respiratory symptoms. She denies diarrhea or abdominal pain. She denies urologic symptoms. She denies skin lesion. She denies prior symptoms. Prior similar symptoms: No Recent Illness/Hospitalization: No PFSH PFSH Medical History Acid reflux Generalized anxiety disorder Hx of ovarian cyst Major depressive disorder, recurrent severe without psychotic features PTSD (post-traumatic stress disorder) Rheumatoid arthritis Home Medications norgestimate 0.25 mg-ethinyl estradiol 35 mcg tablet (Sprintec (28)) 1 tab PO DAILY 02/08/23 [History Last Taken Unknown] omeprazole 20 mg capsule,delayed release 20 mg PO DAILY 02/08/23 [History Last Taken Unknown] fluoxetine 40 mg capsule (Prozac) 40 mg PO DAILY 90 days #90 caps 07/07/23 [Rx Last Taken Unknown] Allergy/AdvReac Type Severity Reaction Status Date / Time No Known Allergies Allergy Verified 08/08/23 02:39 Family History Grandmother Diabetes Lupus Grandfather Cancer Other Alcoholism Depression Psychiatric care Social History Smoking Status: Never smoker alcohol intake: current details: 2-3x a week what type of physical activity do you participate in: none ROS ROS ED Constitutional Constitutional ED: Denies chills, fever(s) or subjective Eyes Eyes: Denies blurry vision, change in vision or diplopia ENT ENT ED: Denies ear pain, rhinorrhea or sore throat Cardiovascular Cardiovascular: Denies chest pain or palpitations Respiratory/Chest Respiratory/Chest: Denies cough, dyspnea or dyspnea on exertion Gastrointestinal Gastrointestinal: Reports nausea and vomiting; Denies abdominal pain, diarrhea or melena Genitourinary Genitourinary ED: Denies dysuria, hematuria or urinary frequency Musculoskeletal Musculoskeletal: Denies arthralgias, back pain, myalgias or neck pain Integumentary Denies rash Neurologic Neurologic: Denies headache(s), paresthesias or weakness Endocrine Endocrinology: Denies cold intolerance or heat intolerance Hematologic/Lymphatic Hematologic/Lymphatic: Reports systems reviewed and no addt'l complaints, except as documented EXAM Physical Exam Const Vital Signs: 08/08/23 02:39 Temperature 98.1 F Temperature Source Temporal Pulse Rate 62 Respiratory Rate 18 Blood Pressure 125/73 H Blood Pressure Mean 90 Pulse Ox 99 Positive well nourished, well developed and obese Constitutional Narrative: Vital signs noted. General Appearance ED: well developed, NAD and pallor; Negative for cyanotic or diaphoretic Nutritional Appearance: obese HEENT Reports moist mucous membranes HEENT Narrative: Head is atraumatic and normocephalic. Ears normal. TMs normal. There is some cerumen noted in the right and left external auditory canal. Nares patent. Posterior pharynx out erythema or exudate. Uvula is midline. Eyes PERRL and EOMs intact bilaterally Eyes Narrative: There is no nystagmus. General Eye ED: Yes scleral icterus; Negative for pale conjunctiva Neck no lymphadenopathy, supple and no JVD General: Negative for tenderness Chest Wall inspection of chest normal and palpation of chest normal Resp normal respiratory effort and clear to auscultation bilaterally Cardio regular rate, regular rhythm, S1 normal heart sound, S2 normal heart sound and no murmurs GI normal to inspection, nondistended, normoactive bowel sounds, non-tender and non-distended; Negative for no masses Auscultation: normoactive bowel sounds Palpation: soft Back/Spine no CVA tenderness Extremity normal to inspection General Extremety ED: Negative for edema or tenderness General Extremity: Negative for edema Neuro oriented x3, CN's II-XII intact bilaterally and no sensory deficits noted Neuro Narrative: There is no dysmetria. The eye askew test and the hint test were negative. Megan-Hallpike maneuver was positive. Patient states her symptoms are worse with her head to the left. Her nystagmus is worse when her head was to the right. Patient was able to ambulate. She had no ataxia. Sensorium / Orientation: alert Motor Exam: strength 5/5 throughout Psych mental status grossly normal Skin no rashes or lesions noted, no wounds and skin turgor normal General Skin Exam: pallor; Negative for jaundice MDM MDM MDM Narrative Medical decision making narrative: The history and physical exam are consistent with benign paroxysmal positional vertigo, bilateral. By the time Baltazar maneuver was performed her symptoms had resolved. This did not reproduce her symptoms. She was discharged home with appropriate home-going instructions. Since patient had a normal neurologic exam other than the Placedo-Hallpike maneuver imaging is not indicated. History & Record Review Additional record(s) reviewed:: Prior outpatient record (Carpal tunnel seen by Ortho), Prior ED visit (For GI related problems) and Prior labs Discharge Plan Triage Chief Complaint: Nausea/Vomiting ED Provider: Adelfo Peacock Dx/Rx/DC Orders Clinical Impression: Benign paroxysmal positional vertigo due to bilateral vestibular disorder Instructions: ED BPV Vertigo Prescriptions: No Action omeprazole 20 mg capsule,delayed release(DR/EC) 20 mg PO DAILY norgestimate-ethinyl estradiol [Sprintec (28)] 0.25-35 mg-mcg tablet 1 tab PO DAILY Patient Comments: TAKE 1 TABLET BY MOUTH ONCE DAILY fluoxetine [Prozac] 40 mg capsule 40 mg PO DAILY 90 Days Qty: 90 1RF Primary Care Provider: Haley Gilbert NP Referrals: Haley Gilbert NP, [employer] [Primary Care Provider] - As Needed Disposition Disposition: Home, Self Care
[2023-08-08 07:03] VITALS: BP 136/75; PULSE 79; RESP 18; O2SAT 99
== END 2023-08-08 07:15 | disposition home or self-care (01) ==
PROVIDERS: Emergency Provider Emergency Medicine; PCP Nurse Practitioner Adult Health; Visit Provider Emergency Medicine
DX: H81.23 Vestibular neuronitis, bilateral (principal)
CPT/HCPCS: 96361; 96374; 99283; J7030; J2405

== ENCOUNTER 2023-08-09 09:14 | Outpatient (RCR) | payer OTHER, SELFPAY ==
--- NOTE | 2023-08-12 14:00 | BH.SGPN.GN ---
Behaviors/Verbalizations/Mental Status: []Pt alert and oriented, casually dressed and groomed. Eye contact good. Motor activity appropriate. Speech within normal limits. Affect congruent, mood depressed. Thoughts linear, logical, no signs of hallucinations or delusions. Client Response/Progress/Benefit: [] Pt receptive of session, engaged throughout. Pt reports she is consistent with medications and she has been seeing her outpatient providers consistently. However, pt reports she was sick recently and this triggered a setback with her depression. Pt struggled to give herself any credit, but group helped pt identify the use of opposite action and being vulnerable. ?Receptive of discussion on personal accountability and its importance in maintaining mental health stability. Engaged in brainstorming strategies for improving ability to hold themselves accountable. Reported wanting to work on getting back to being consistent with self-care by setting reminders in her phone. Pt feels she is dialogue driven and this will help her. Pt seemed to benefit from support from peers and increasing understanding of personal accountability benefits and strategies. Will continue IOP aftercare group to maintain gains and prevent decompensation. Narrative Note: []
--- NOTE | 2023-08-19 14:00 | BH.SGPN.GN ---
Behaviors/Verbalizations/Mental Status: []Client alert and oriented, casually dressed and groomed. Eye contact good. Motor activity appropriate. Speech within normal limits. Affect congruent, mood euthymic. Thoughts linear, logical, no signs of hallucinations or delusions. Client Response/Progress/Benefit: []Receptive of session, engaged throughout. Pt reports she has remained consistent in attending outpatient counseling and psychiatry appointments, as well as maintaining medication compliance. Noted use of positive self-talk, opposite action, and communicating with supports as coping skills aiding in ongoing mental health maintenance. Engaged and attentive during discussion of vulnerability and benefits of practicing vulnerability. Shared being vulnerable has not been easy for her as she struggles with conflict and fear of disappointing or upsetting others. Group discussed ways we avoid feeling vulnerable and how this negatively affects mental health and relationships. Appeared to benefit from group support and discussion reflecting on the positive impact vulnerability can have on mental health. Identified plans to challenge herself to let her supports see her not be perfect as a way in which she could practice being vulnerable in the next week. Pt will continue with outpatient counseling and psychiatry as she is set to d/c from aftercare on this date. Narrative Note: []
--- NOTE | 2023-08-19 16:04 | BH.DS_ITS ---
Discharge Summary Demographics Date of Admission:: 07/01/23 Discharge Date: 08/19/23 Presenting Problems at Admission:: Pt discharged from IOP tx and transitioned to IOP aftercare to maintain gains pt made in IOP and to reinforce healthy coping skills. At admission to IOP aftercare, pt continued to report symptoms of depression, anxiety, and negative self-talk but of reduced intensity and frequency. Pt also was experiencing stress from work, relationships, and working on her anxious attachment. Discharge Diagnoses:: Major depressive disorder, recurrent, severe without psychosis F 33.2; Generalized anxiety disorder; PTSD; Cluster B traits Reason for Discharge:: Pt has accomplished tx goals AEB ability to maintain mood stability and gains made in IOP. Pt's DSM-5 scores decreased by 47% from IOP admission. Pt will transition to traditional outpatient counseling. Treatment Progress During Treatment & Response: Pt responded well and made progress in IOP aftercare as evidenced by pt's participation in group discussions and self- report of consistently applying coping skills. Pt's overall DSM-5 scores decreased by 47% from IOP admission. Pt?s depression decreased by 71% since original IOP admission and pt's scores for anxiety decreased by 50% compared to original IOP scores. Additionally, at discharge Pt was reporting consistently using healthy coping skills and engaging in outpatient counseling. Issues Still to be Addressed:: Self-compassion, self-esteem and worth, fostering a secure attachment, thought challenging, boundary setting, and assertive communication. Discharge Recommendations/Instructions:: Pt will continue working with Dr. Beltran for medication management and Dr. She Arora for individual therapy. Discharge Handout
== END 2023-08-20 06:46 | disposition home or self-care (01) ==
LOC: BHOG 09:14
PROVIDERS: PCP Nurse Practitioner Adult Health; Referring Provider Psychiatry & Neurology Psychiatry; Visit Provider Psychiatry & Neurology Psychiatry
DX: F33.2 Major depressive disorder, recurrent severe without psychotic features (principal); F41.1 Generalized anxiety disorder; F43.10 Post-traumatic stress disorder, unspecified
CPT/HCPCS: 90853